=== PATIENT | female | born 1950 | race African-American/Black ===

== ENCOUNTER → 2019-05-27 | Outpatient (CLI) | payer MEDICARE ==
--- NOTE | 2019-05-27 12:54 | WOMENS IMAGING REPORT ---
EXAM DESCRIPTION: U/S BREAST UNILATERAL, COMPL COMPLETE DATE/TIME: 05/27/2019 10:05 am REASON FOR STUDY: RT BREAST TO INCLUDE AXILLA,N63.11 N63.11 UNSPECIFIED LUMP IN THE RIGHT BREAST, U PPER OUTER WILMER FINDINGS: Please see combined report for performance of procedure and radiologic supervision and int erpretation. IMPRESSION: Please see combined report for performance of procedure and radiologic supervision and i nterpretation. Reading location - IP/workstation name: [email or web address]
--- NOTE | 2019-05-29 07:20 | WOMENS IMAGING REPORT ---
EXAM DESCRIPTION: 3D DX MAMMO BILAT COMPLETED DATE/TIME: 05/27/2019 9:39 am REASON FOR STUDY: N63.11 UNSPECIFIED LUMP IN THE RIGHT BREAST, UPPER OUTER QUADRANT N63.11 UNSPECIF IED LUMP IN THE RIGHT BREAST, UPPER OUTER WILMER COMPARISON: None. EXAM PARAMETERS: Standard craniocaudal and mediolateral oblique views of each breast recorded using digital acquisition and breast tomosynthesis. Read with the assistance of CAD: .[facility] - [employer] Strap Cutter Version 9.2 LIMITATIONS: This examination is very limited on the right due to the patient's pain and tenderness. The compression was limited. FINDINGS: RIGHT BREAST MASSES: Diffuse marked skin thickening. A large multilobulated dense mass in the lateral breast. I ncreased parenchymal density is located directly behind the nipple. This finding correlates to the c linically palpable mass. CALCIFICATIONS: No new or suspicious calcifications. ARCHITECTURAL DISTORTION: None. ASYMMETRY: None noted. OTHER: No other significant findings. LEFT BREAST MASSES: No suspicious masses. CALCIFICATIONS: No new or suspicious calcifications. ARCHITECTURAL DISTORTION: None. ASYMMETRY: None noted. OTHER: No other significant finding. BREAST ULTRASOUND: TECHNIQUE: Static and dynamic grayscale images acquired of the right breast in the specific areas of clinical/mammographic concern. Selected color Doppler images recorded. ELASTOGRAPHY PERFORMED: No. LIMITATIONS: None. FINDINGS: MASS: The right breast was scanned from the 12 to 12 o'clock axes. Diffuse marked skin thickening. Breast edema is also noted. A very large multiloculated complex mass composed of cystic, solid and complex cystic components between the 7-8 o'clock axes. . Blood flow is demonstrated. Consideration s for this finding includes neoplasm, with differential including inflammatory breast cancer. ELASTOGRAPHY CHARACTERISTICS: Not applicable. OTHER: No other significant finding. IMPRESSION: 1. A very large complex multiloculated mass in the Right breast between the 7- 8 o'cloc k axes. Marked diffuse skin thickening and edema within the breast. BREAST DENSITY: b. There are scattered areas of fibroglandular density. BIRAD: ASSESSMENT: 4C-High suspicion for malignancy. Biopsy should be performed in the absence of c linical contra-indication. RECOMMENDATION: 1. The patient has a scheduled Surgical appointment. MRI Breast with and without c ontrast also suggested. COMMUNICATION:The results of this examination were discussed with the provider's partner on 05/27/2019 at 10:16 hours. COMMENT: The patient has been notified of the results by letter per SA requirements. Additional no tification policies are in place for contacting patient with suspicious or incomplete findings. Quality ID #225: The [employer] recommends an annual screening mammogram for women aged 40 years or over. This facility utilizes a reminder system to ensure that all patients receive reminder letters, and/or direct phone calls for appointments. This includes reminders for routine scr eening mammograms, diagnostic mammograms, or other Breast Imaging Interventions when appropriate. Th is patient will be placed in the appropriate reminder system. TECHNICAL DOCUMENTATION: FINDING NUMBER: (1) ASSESSMENT: (1) JOB ID: [id number] 2010 [employer]- All Rights Reserved Reading location - IP/workstation name: [email or web address]
== END ==
LOC: WI 09:14
PROVIDERS: ATTEND Physician Assistant
DX: N63.11 Unspecified lump in the right breast, upper outer quadrant (principal)
CPT/HCPCS: 76641; 77066; G0279; 77062

== ENCOUNTER 2019-08-14 07:55 | Day surgery (SDC) | payer MEDICARE, OTHER ==
[2019-08-09 10:27] LABS: HEMATOCRIT 36.4 % (36.0-47.0); HEMOGLOBIN 12.2 g/dL (12.0-15.5); MEAN CORPUSCULAR HEMOGLOBIN 30.9 pg (27.0-33.4); MEAN CORPUSCULAR HGB CONC 33.6 g/dL (32.0-36.0); MEAN CORPUSCULAR VOLUME 92 fl (80-97); PLATELET COUNT 282 10^3/uL (150-450); RED BLOOD COUNT 3.96 10^6/uL (3.72-5.28); RED CELL DISTRIBUTION WIDTH 13.7 % (11.5-14.0); WHITE BLOOD COUNT 6.9 10^3/uL (4.0-10.5)
[2019-08-09 10:48] LABS: ANION GAP 9 (5-19); BLOOD UREA NITROGEN 17 mg/dL (7-20); CALCIUM 9.4 mg/dL (8.4-10.2); CARBON DIOXIDE 28 mmol/L (22-30); CHLORIDE 100 mmol/L (98-107); GLUCOSE 311 mg/dL (75-110)
[~2019-08-14 07:55] MED LIST: ACETAMINOPHEN 325 MG TABLET PO PRN; CLINDAMYCIN 600 MG/D5W RTU 600 MG/50 ML RTUPB IV PRN; DEXAMETHASONE SOD PHOSPHATE INJ 4 MG/1 ML VIAL ONE; LACTATED RINGERS 1000 ML IV PRN; LIDOCAINE 0.5% INJ-PF (5 MG/ML) 50 ML SDV SUBCUT PRN; LIDOCAINE 4% CREAM 5 GM TUBE TP PRN; ONDANSETRON HCL INJ/PF 4 MG/2 ML SDV ONE; RINGERS SOLUTION,LACTATED 1,000 ML IV PRN; SUCCINYLCHOLINE CHLORIDE INJ 200 MG/10 ML VIAL ONE
[2019-08-14] MEDS ORDERED: LIDOCAINE 4% CREAM 5 GM TUBE ONE (08:11)
[2019-08-14] MEDS ORDERED: CLINDAMYCIN 600 MG/D5W RTU 600 MG/50 ML RTUPB IV ONE (09:07)
[2019-08-14] MEDS ORDERED: MIDAZOLAM 2 MG/2 ML INJ ONE (09:47)
[2019-08-14] MEDS ORDERED: HYDROMORPHONE HCL INJ/PF 2 MG/ML AMPULE ONE (09:48)
[2019-08-14] MEDS ORDERED: PROPOFOL INJ 200 MG/20 ML VIAL IV ONE (09:48)
[2019-08-14] MEDS ORDERED: HYDRALAZINE HCL INJ/PF 20 MG/1 ML SDV ONE (12:15)
[2019-08-14] MEDS ORDERED: MICROFIBRILLAR COLLAGEN 1 GM PACK ONE (12:34)
[2019-08-14] MEDS ORDERED: METHYLENE BLUE 50 MG/10 ML AMPULE ONE (12:34)
[2019-08-14] MEDS ORDERED: LIDOCAINE 1%/EPINEPHRINE INJ 20 ML VIAL ONE (12:34)
[2019-08-14] MEDS ORDERED: INSULIN REG, HUMAN 100 UNIT/ML 3 ML VIAL (PYX) ONE (12:40)
--- NOTE | 2019-08-14 13:00 | RADIOLOGY REPORT (SQ) ---
EXAM DESCRIPTION: NM LYMPHATICS/LYMPH GLANDS IMAGES COMPLETED DATE/TIME: 08/14/2019 11:57 am REASON FOR STUDY: RT BREAST TO INCLUDE AXILLA N63.11, UNSPEC LUMP IN RT BREAST N63.10 UNSPECIFIED L UMP IN THE RIGHT BREAST, UNSPECIFIED WILMER Z79.899 OTHER [facility] (CURRENT) DRUG THERAPY COMPARISON: 05/27/2019 RADIONUCLIDE AND DOSE: 0.625 microcuries TC-99m tilmanocept - Lymphoseek. The route of agent administration: Subcutaneous in the skin. TECHNIQUE: The skin of the right breast was prepped in sterile fashion. The radiopharmaceutical was administered in equally divided doses in the periareolar breast. LIMITATIONS: None. FINDINGS: Images demonstrate activity at the injection site and a right axillary node. IMPRESSION: ADMINISTRATION OF RADIOPHARMACEUTICAL FOR SENTINEL LYMPH NODE EVALUATION. TECHNICAL DOCUMENTATION: JOB ID: [id number] 2010 [employer]- All Rights Reserved Reading location - IP/workstation name: [email or web address]
[2019-08-14] MEDS ORDERED: OXYCODONE-ACETAMINOPHEN 5-325 MG TABLET PO PRN ×2 (13:22)
[2019-08-14] MEDS ORDERED: MEPERIDINE HCL/PF INJ 25 MG/1 ML DISP.SYRIN IV PRN (13:22)
[2019-08-14] MEDS ORDERED: MORPHINE SULFATE 10 MG/ML INJ IV PRN (13:22)
[2019-08-14] MEDS ORDERED: FENTANYL CITRATE INJ/PF 100 MCG/2 ML AMPUL IV PRN ×3 (13:22)
[2019-08-14] MEDS ORDERED: DIPHENHYDRAMINE HCL 50 MG/ML VIAL IV PRN (13:22)
[2019-08-14] MEDS ORDERED: ONDANSETRON HCL INJ/PF 4 MG/2 ML SDV IV PRN (13:22)
[2019-08-14] MEDS ORDERED: HYDRALAZINE HCL INJ/PF 20 MG/1 ML SDV IV ONE (14:00)
--- NOTE | 2019-08-14 14:29 | Discharge Summary ---
Discharge Summary (SDC) - Discharge Final Diagnosis: Large hemorrhagic, fungating right breast tumor Date of Surgery: 08/14/19 Discharge Date: 08/14/19 Condition: Good Treatment or Instructions: Teach patient drain care; follow-up with [facility] in 1 week; prescription on chart; may shower in 48 hours Referrals: BALBINA GUERRERO PA [Primary Care Provider] - Discharge Diet: As Tolerated Discharge Activity: Activity As Tolerated Home Care Assistance: None Needed Report the Following to Your Physician Immediately: Shortness of Breath, Increase in Pain, Fever over 101 Degrees
--- NOTE | 2019-08-14 14:40 | Operative Report ---
Operative Report DATE OF SURGERY: 08/14/19 PREOPERATIVE DIAGNOSIS: Large right hemorrhagic breast tumor consistent with pa pillomatous changes POSTOPERATIVE DIAGNOSIS: Same OPERATION: 1. Right mastectomy. 2. Right axillary sentinel lymph node biopsy. 3. Drainage of right chest wall SURGEON: MYRON BECKER MUSIC VIDEO DIRECTOR: LUC ARIZMENDI ANESTHESIA: GA TISSUE REMOVED OR ALTERED: 1 right breast. Right sentinel lymph node. Posterior mastectomy margin COMPLICATIONS: None ESTIMATED BLOOD LOSS: 75 cc INTRAOPERATIVE FINDINGS: See below PROCEDURE: Patient seen the preop holding area the right breast was marked. The patient appears undergone lymphoscintigraphy of the right breast with an area of increased uptake in the low right axilla. Right breast was marked, the patient was taken to the main operating room general anesthesia was induced. The right breast, axilla and chest wall were prepped and draped in a sterile fashion. We proceeded with methylene blue injection, 10 o'clock position, areolar border right breast. Right breast was marked for a planned right mastectomy. Surgical plan and surgical timeout were conducted. The skin was incised with a #10 blade, and superior and inferior skin flaps were raised with electrocautery. Of note there was a significant amount of edema, and dilated superficial veins. All veins were clipped as encountered with the medium Hemoclip applicator. The breast was then dissected off of the chest wall including the pectoralis major fascia. The the extent of the mastectomy included the infra clavicular level superiorly, the para sternal tissue medially, and the parenchyma putting the serratus anterior muscle inferiorly. The breast was taken entirely off of the chest wall, then the dissection was continued out laterally elevating the breast off of the lateral border of the pectoralis muscle. We now turned our attention to the right axilla. Endeavor lymph node biopsy was performed. There were no blue nodes identified, however there was one hot node was resected with a comparable count ex vivo. It was sent to pathology for permanent analysis. The Srinivas was removed in toto with the remainder of the breast. The breast was freed up off of the chest wall, and lateral a xillary fold and marked with a long suture in the lateral position and short suture in the superior position. Of note while the breast was coming off of the pectoralis muscle along its lateral-inferior border, there was some scar tissue. I therefore want to ensure that the margin here was negative so a small portion of fibromuscular tissue representing the posterior wall of the mastectomy removed with electrocautery. It was approximately 2 x 2 cm. It was marked with a long suture lateral position short suture in the superior position. It was personally taken to the pathology lab by Dr. Dick and reviewed with Dr. Katelin Rosales. The specimen was prepared, frozen sections acquired, and examined and found to contain no evidence of malignancy. At this point we felt the operation was complete. A large Armand drain was placed in the inferior skin flap, secured to the skin with 2-0 Prolene suture. The wound was closed in layers with 2-0 Vicryl 3-0 Vicryl, and skin glue. Patient tolerated procedure well, taken to recovery room in stable condition. The physician facilities maintenance assistant, Ms. Atkins, provided assistance during this case by: retracting tissue, instillation of local anesthesia and closure of skin incisions.
[2019-08-14 17:23] VITALS: BP 153/86
== END 2019-08-14 17:00 | disposition home or self-care (01) ==
LOC: OROUT 07:55
PROVIDERS: ATTEND Surgery
DX: C50.811 Malignant neoplasm of overlapping sites of right female breast (principal); C77.3 Secondary and unspecified malignant neoplasm of axilla and upper limb lymph nodes; I10 Essential (primary) hypertension; F17.210 Nicotine dependence, cigarettes, uncomplicated; Z86.73 Personal history of transient ischemic attack (TIA), and cerebral infarction without residual deficits; Z03.818 Encounter for observation for suspected exposure to other biological agents ruled out; Z79.899 Other long term (current) drug therapy
CPT/HCPCS: 36415 ×2; 82962; 84132; 85027; 80048; 88342 ×2; 88341 ×2; 88305 ×2; 88309 ×2; 88331 ×2; 78195; 01610; 19307; U0003; A9520; J2250; J1100; J0360; J1170; J3490; A9270; J0330; J2405; J2704; Q9968; C9803; 1610; 87635; 88307; J1815

== ENCOUNTER → 2019-09-03 | Outpatient (CLI) | payer MEDICARE, OTHER ==
--- NOTE | 2019-09-03 11:35 | RADIOLOGY REPORT (SQ) ---
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 TECHNIQUE: CT scan of the abdomen and pelvis performed using helical scanning technique with dynamic intravenous contrast injection. No oral contrast. Images reviewed with lung, soft tissue, and bone windows. Reconstructed coronal and sagittal MPR images reviewed. Delayed images for evaluation of the urinary system also acquired. All images stored on PACS. All CT scanners at this facility use dose modulation, iterative reconstruction, and/or weight based d osing when appropriate to reduce radiation dose to as low as reasonably achievable (ALARA). [facility]: Dose Right [facility]: CareDose [facility]: Dose Right [facility]: Teradose 4D [facility]: [employer] CONTRAST TYPE AND DOSE: 75 mL Omnipaque 350- low osmolar. RENAL FUNCTION: Creatinine 0.6 milligrams/deciliter. LIMITATIONS: None. FINDINGS: LOWER CHEST: Refer to the separate report of the CT of the chest. LIVER: The morphology of the liver is noncirrhotic. There are numerous low-attenuation hepatic lesio ns scattered that range in size from 5 mm to 17 x 17 mm ; the internal attenuation of the 17 x 17 mm lesion in segment 4A of the liver measures less than 10 Hounsfield units. The portal veins are paten t. SPLEEN: No splenomegaly or splenic mass. PANCREAS: No acute gross abnormality of the pancreas. GALLBLADDER: No abnormality that is apparent on CT. ADRENAL GLANDS: 16 x 9 mm nodule in the right adrenal gland. RIGHT KIDNEY AND URETER: There is no solid mass, hydronephrosis, nephrolithiasis, hydroureter or uret erolithiasis. LEFT KIDNEY AND URETER: There is no solid mass, hydronephrosis, nephrolithiasis, hydroureter or urete rolithiasis. AORTA AND VESSELS: Calcified and noncalcified atheromatous plaques in the abdominal aorta and iliac v essels. There is no abdominal aortic aneurysm. RETROPERITONEUM: No retroperitoneal adenopathy, hemorrhage or mass. BOWEL AND PERITONEAL CAVITY: No bowel obstruction, bowel wall thickening or pericolonic/ perienteric inflammation. No mesenteric adenopathy, free intraperitoneal fluid or mesenteric/ omental inflammati on. APPENDIX: Unable to identify the appendix. There is no pericecal inflammation. PELVIS: The uterus is surgically absent. There is no adnexal mass. There is no abnormality of the u rinary bladder. ABDOMINAL WALL: No abdominal wall mass or hernia. BONES: Sclerotic lesion with a narrow zone of transition in the left ilium (image 57 of series 3). OTHER: No other finding. IMPRESSION: 1. Low attenuation hepatic lesions that range in size from 5 mm to 17 x 17 mm. Based o n the internal attenuation of the 17 x 17 mm lesion (less than 10 Hounsfield units) the favored diffe rential consideration is hepatic cysts. Continued attention on follow-up CTs is recommended. 2. Indeterminate 16 x 9 mm right adrenal nodule. 3. Sclerotic lesion with a narrow zone of transition in the left ilium (image 57 of series 3) - chito elate with findings on bone scan. TECHNICAL DOCUMENTATION: JOB ID: [id number] Quality ID # 436: Final reports with documentation of one or more dose reduction techniques (e.g., Au tomated exposure control, adjustment of the mA and/or kV according to patient size, use of iterative reconstruction technique) 2010 [employer]- All Rights Reserved Reading location - IP/workstation name: [email or web address]
--- NOTE | 2019-09-03 11:48 | RADIOLOGY REPORT (SQ) ---
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 TECHNIQUE: CT scan of the chest performed using helical scanning technique with dynamic intravenous contrast injection. Images reviewed with lung, soft tissue and bone windows. Reconstructed coronal and sagittal MPR and MIP images reviewed. All images stored on PACS. All CT scanners at this facility use dose modulation, iterative reconstruction, and/or weight based d osing when appropriate to reduce radiation dose to as low as reasonably achievable (ALARA). [facility]: Dose Right [facility]: CareDose [facility]: Dose Right [facility]: Teradose 4D [facility]: [employer] CONTRAST TYPE AND DOSE: 75 mL Omnipaque 350- low osmolar. RENAL FUNCTION: Creatinine 0.6 milligrams/deciliter. RADIATION DOSE: CT Rad equipment meets quality standard of care and radiation dose reduction techniq ues were employed. CTDIvol: 4.5 - 5.1 mGy. DLP: 639 mGy-cm. LIMITATIONS: None. FINDINGS: LUNGS AND PLEURA: The trachea and main bronchi are patent. There is no consolidation, ple ural effusion or pneumothorax. There is no greater than 6 mm pulmonary nodule. HILAR AND MEDIASTINAL STRUCTURES: No adenopathy or mass. HEART AND VASCULAR STRUCTURES: Calcified and noncalcified atheromatous plaques in the thoracic aorta. There is no thoracic aortic aneurysm or dissection. There is a retropharyngeal course of the left common carotid artery. There is mild atherosclerotic calcification of the coronary arteries. There is no cardiomegaly or pericardial effusion. HARDWARE: None in the chest. UPPER ABDOMEN: Refer to the separate report of the CT of the abdomen. THYROID AND OTHER SOFT TISSUES: Status post right mastectomy and axillary lymph node dissection with surgical clips present. There is dermal thickening throughout the anterolateral aspect of the right hemithorax. There is a 16 x 21 mm nodular density in the right axilla (image 15 of series 2) that zhang s an internal attenuation of 9.2 Hounsfield units. There also several adjacent lymph nodes that julieth ure up to 6 mm in short axis diameter. The low-attenuation subcutaneous lesion posterior to the T2 s pinous process and left trapezius (image 2 of series 2) could represent epidermal inclusion cysts. BONES: No fracture or osseous lesion. OTHER: No other finding. IMPRESSION: Status post right mastectomy and axillary lymph node dissection. There are expected pos toperative findings in the anterolateral aspect of the right hemithorax including dermal thickening a nd surgical clips. The nodular density in the right axilla (image 15 of series 2) is nonspecific and could represent fat necrosis - consider correlation with an ultrasound. TECHNICAL DOCUMENTATION: JOB ID: [id number] Quality ID # 436: Final reports with documentation of one or more dose reduction techniques (e.g., Au tomated exposure control, adjustment of the mA and/or kV according to patient size, use of iterative reconstruction technique) 2010 [employer]- All Rights Reserved Reading location - IP/workstation name: [email or web address]
--- NOTE | 2019-09-03 14:34 | RADIOLOGY REPORT (SQ) ---
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 The route of agent administration: Intravenous. ADDITIONAL DRUGS AND DOSES: None. TECHNIQUE: Routine delayed images at 3 hours post radionuclide injection acquired of the bony skelet on including anterior and posterior whole-body projections and additional focused images as needed. LIMITATIONS: None. FINDINGS: BONES: There is increased uptake in the mandible and in the maxilla. There is a small are a of focal uptake near the costovertebral junction of the left 6th rib. There is increased uptake in the right knee. KIDNEYS: Symmetric excretion without obstruction. OTHER: No other significant finding. IMPRESSION: The uptake in the mandible and maxilla likely secondary to dental disease. The uptake a t the costovertebral junction on the left may be secondary to degenerative change. Activity in the r ight knee likely secondary to degenerative change. However, cannot entirely exclude metastatic disea se COMMENT: Quality measure 147: Current bone scan is compared with any available plain radiographs, p rior bone scans, and CT/MRI. TECHNICAL DOCUMENTATION: JOB ID: [id number] 2010 [employer]- All Rights Reserved Reading location - IP/workstation name: [email or web address]
== END ==
LOC: RAD 09:36
PROVIDERS: ATTEND Internal Medicine
DX: C50.411 Malignant neoplasm of upper-outer quadrant of right female breast (principal)
CPT/HCPCS: 82565; 78306; 71260; 74177; A9503; Q9969

== ENCOUNTER → 2019-10-01 | Outpatient (CLI) | payer MEDICARE, OTHER ==
--- NOTE | 2019-10-02 09:03 | RADIOLOGY REPORT (SQ) ---
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 TECHNIQUE: Blood glucose level was verified. Above dose of FDG was injected intravenously. 2-D seg mented attenuation correction images were obtained from the base of the skull to the midthighs. Nonc ontrast CT images were obtained for attenuation correction and fusion with emission images. CT image s were performed without oral or intravenous contrast and are not sensitive for parenchymal lesions. A series of overlapping emission PET images were obtained. Images reviewed and manipulated at [facility] work station by the radiologist. Images stored on PACS. LIMITATIONS: None. FINDINGS: HEAD AND NECK: No areas of abnormal metabolic activity in the soft tissues of the head and neck. CHEST: No abnormal parenchymal or mediastinal abnormalities. Mild uptake in small sub pectoralis lym ph nodes. SUV is less than 2. Mild increased uptake in the skin of the right breast at the surgical site. There is focal uptake demonstrated on image 79. SUV however is less in 2 this may related to prior surgery. ABDOMEN AND PELVIS: No areas of abnormal metabolic activity in the abdomen or pelvis. Expected physi ologic activity is present in the genitourinary system and bowel. PROXIMAL LOWER EXTREMITIES: No areas of abnormal metabolic activity in the soft tissues of the lower extremities. BONES: No abnormal metabolic activity in the visualized skeleton. ADDITIONAL CT FINDINGS: No additional significant findings on the noncontrast CT images. OTHER: No other significant findings. IMPRESSION: Mild uptake is subcutaneous tissues of the right breast most likely related to recent arredondo rgery. There are some small lymph nodes in the right axilla but SUV is less than 2. No evidence of metastatic disease by PET evaluation. TECHNICAL DOCUMENTATION: JOB ID: [id number] 2010 [employer]- All Rights Reserved Reading location - IP/workstation name: [email or web address]
== END ==
LOC: RAD 09-24 08:37
PROVIDERS: ATTEND Internal Medicine
DX: C50.411 Malignant neoplasm of upper-outer quadrant of right female breast (principal)
CPT/HCPCS: 78815; A9552

== ENCOUNTER 2019-10-24 13:55 | Outpatient (CLI) | payer MEDICARE, OTHER ==
[~2019-10-24 13:55] MED LIST changes: -ACETAMINOPHEN 325 MG TABLET PO PRN; -CLINDAMYCIN 600 MG/D5W RTU 600 MG/50 ML RTUPB IV PRN; -DEXAMETHASONE SOD PHOSPHATE INJ 4 MG/1 ML VIAL ONE; -LACTATED RINGERS 1000 ML IV PRN; -LIDOCAINE 0.5% INJ-PF (5 MG/ML) 50 ML SDV SUBCUT PRN; -LIDOCAINE 4% CREAM 5 GM TUBE TP PRN; -ONDANSETRON HCL INJ/PF 4 MG/2 ML SDV ONE; +PEGFILGRASTIM-CBQV 6 MG/0.6 ML SYRINGE SUBCUT PRN; -RINGERS SOLUTION,LACTATED 1,000 ML IV PRN; -SUCCINYLCHOLINE CHLORIDE INJ 200 MG/10 ML VIAL ONE
[2019-10-24 14:03] VITALS: BP 178/63
== END 2019-10-24 14:44 | disposition home or self-care (01) ==
LOC: II 13:55 → 5TH 13:57 → II 14:44
PROVIDERS: ATTEND Internal Medicine
DX: Z76.89 Persons encountering health services in other specified circumstances (principal); C50.411 Malignant neoplasm of upper-outer quadrant of right female breast
CPT/HCPCS: 96372; Q5111

== ENCOUNTER 2019-10-29 23:12 | Emergency (ER) | payer MEDICARE ==
--- NOTE | 2019-10-29 23:28 | ER Document Report ---
ED General - General Stated Complaint: BACK PAIN Time Seen by Provider: 10/29/19 23:21 Primary Care Provider: SONA MELLO MD [ACTIVE STAFF] - Follow up as needed Mode of Arrival: Medic Information source: Patient, Emergency Med Personnel Notes: 68-year-old black female arrives by EMS after having right flank pain mid back to low back pain and spasm since [place] hours. Progressively became worse until she called EMS early this evening. EMS evaluated the patient and gave her 100 mg of fentanyl which caused her spasms to cease all pain and spasms. Patient is awake and alert upon arrival and advises she is completely cured. She denies any dysuria denies any overuse. She was laying on her couch as she was having her right flank and back spasms. Patient just had her right breast removed because of cancer here at this hospital and August of this year. EKG was normal vital signs were within normal limits. Patient had 149/79 blood pressure 93 heart rate respiratory rate 15 at 96% room air saturation and was afebrile per EMS. Patient says she ate supper at 1500 which was meatloaf and potatoes and string beans. She denies any nausea at this time. TRAVEL OUTSIDE OF THE [place] IN LAST 30 DAYS: No - HPI Onset: This morning Onset/Duration: Sudden, Persistent, Better Quality of pain: Achy Severity: Severe Pain Level: 5 Associated symptoms: None Exacerbated by: Movement Relieved by: Remaining still Similar symptoms previously: No - Patient reports she had spasms in her back over 40 years ago;but none recen Recently seen / treated by doctor: No - Related Data Allergies/Adverse Reactions: Penicillins Allergy (Severe, Verified 10/29/19 23:31) Hives Past Medical History - General Information source: Patient - Social History Smoking Status: Former Smoker Cigarette use (# per day): No Chew tobacco use (# tins/day): No Smoking Education Provided: No Frequency of alcohol use: None Drug Abuse: None Lives with: Family Family History: Reviewed & Not Pertinent Patient has suicidal ideation: No Patient has homicidal ideation: No - Past Medical History Cardiac Medical History: Reports: Hx Hypertension Denies: Hx Coronary Artery Disease, Hx Heart Attack Pulmonary Medical History: Denies: Hx Asthma, Hx Bronchitis, Hx COPD, Hx Pneumonia Neurological Medical History: Reports: Hx Cerebrovascular Accident - no residual. Denies: Hx Seizures Musculoskeletal Medical History: Denies Hx Arthritis - Immunizations Hx Diphtheria, Pertussis, Tetanus Vaccination: No Review of Systems - Review of Systems Constitutional: No symptoms reported EENT: No symptoms reported Cardiovascular: No symptoms reported Respiratory: No symptoms reported Gastrointestinal: No symptoms reported Genitourinary: No symptoms reported Female Genitourinary: No symptoms reported Musculoskeletal: See HPI, Back pain Skin: No symptoms reported Hematologic/Lymphatic: No symptoms reported Neurological/Psychological: No symptoms reported Physical Exam - Vital signs Vitals: Temp 99 F 10/29/19 23:12 Interpretation: Normal - General General appearance: Appears well, Alert - HEENT Head: Normocephalic, Atraumatic Eyes: Normal Pupils: PERRL Mouth/Lips: Normal Mucous membranes: Normal Pharynx: Normal Neck: Normal - Respiratory Respiratory status: No respiratory distress Chest status: Nontender Breath sounds: Normal Chest palpation: Normal, Other - obvious amastia right chest - Cardiovascular Rhythm: Regular Heart sounds: Normal auscultation Murmur: No - Abdominal Inspection: Normal Distension: No distension Bowel sounds: Normal Tenderness: Nontender Organomegaly: No organomegaly - Rectal Hemorrhoids: Other - deferred - Genitourinary Bimanuel exam: Other - deferred - Back Back: Tender - right cva to ls area prior to arrival but none upon arrival - Extremities General upper extremity: Normal inspection General lower extremity: Normal inspection - Neurological Neuro grossly intact: Yes Cognition: Normal Orientation: AAOx4 Chauvin Coma Scale Eye Opening: Spontaneous Karen Coma Scale Verbal: Oriented Chauvin Coma Scale Motor: Obeys Commands Chauvin Coma Scale Total: 15 Speech: Normal Motor strength normal: LUE, RUE, LLE, RLE Sensory: Normal - Psychological Associated symptoms: Normal affect - Skin Skin Temperature: Warm Skin Moisture: Dry Course - Vital Signs Vital signs: Temp Pulse Resp BP Pulse Ox 99.0 F 87 18 144/67 H 93 10/29/19 23:24 10/29/19 23:24 10/29/19 23:24 10/29/19 23:24 10/29/19 23:24 - Laboratory Laboratory results interpreted by me: 10/29/19 23:42 Urine Glucose (UA) >=500 H Ur Leukocyte Esterase TRACE H - Diagnostic Test Radiology reviewed: Reports reviewed Discharge - Discharge Clinical Impression: Spasm of back muscles, UTI (urinary tract infection) Condition: Good Disposition: HOME, SELF-CARE Additional Instructions: Follow-up with personal doctor; this week return to ER as needed; take medicines as directed; encourage fluids ;avoid lifting bending or twisting until seen by personal doctor. Prescriptions: Ciprofloxacin HCl [Cipro 500 mg Tablet] 500 mg PO BID #20 tablet Chlorzoxazone [Parafon Forte Dsc 500 Mg Tablet] 500 mg PO BID PRN #20 tablet PRN Reason: Referrals: SONA MELLO MD [ACTIVE STAFF] - Follow up as needed
[2019-10-29 23:58] LABS: APPEARANCE,URINE CLEAR; BILIRUBIN,URINE NEGATIVE (NEGATIVE); COLOR,URINE YELLOW; GLUCOSE, URINE >=500 mg/dL (NEGATIVE); KETONES,URINE NEGATIVE (NEGATIVE); LEUKOCYTE ESTERASE,URINE TRACE (NEGATIVE); NITRITE,URINE NEGATIVE (NEGATIVE); PROTEIN,URINE NEGATIVE (NEGATIVE); URINE SPECIFIC GRAVITY 1.023; UROBILINOGEN,URINE NEGATIVE mg/dL (<2.0)
--- NOTE | 2019-10-30 00:10 | RADIOLOGY REPORT (SQ) ---
CLINICAL HISTORY: right flank spasms COMPARISON: None. TECHNIQUE: XR CHEST 1 VIEW 10/29/2019 11:22 PM CDT FINDINGS: Cardiac silhouette is normal in size. Lungs are clear without consolidation, atelectasis, mass or edema. There is no pleural effusion. There is no pneumothorax. There are no acute osseous findings. IMPRESSION: Clear lungs.
--- NOTE | 2019-10-30 00:10 | RADIOLOGY REPORT (SQ) ---
CLINICAL HISTORY: r flank spasms COMPARISON: None. TECHNIQUE: XR ABDOMEN 1 VIEW (KUB) 10/29/2019 11:22 PM CDT FINDINGS: Bowel gas pattern is nonspecific. There are no abnormal radiopaque foreign bodies or abnormal calcifications. Osseous structures are grossly unremarkable. IMPRESSION: No bowel obstruction.
[2019-10-30] MEDS ORDERED: CIPROFLOXACIN HCL 500 MG TABLET PO ONE (02:22)
[2019-10-30 02:54] VITALS: BP 146/74
== END 2019-10-30 02:54 | disposition home or self-care (01) ==
LOC: ER 23:12
DX: M62.830 Muscle spasm of back (principal); N39.0 Urinary tract infection, site not specified; I10 Essential (primary) hypertension; Z90.11 Acquired absence of right breast and nipple; Z85.3 Personal history of malignant neoplasm of breast; Z87.891 Personal history of nicotine dependence; Z88.0 Allergy status to penicillin
CPT/HCPCS: 99284; 81001; 71045; 74018; A9270

== ENCOUNTER 2019-11-13 08:46 | Outpatient (CLI) | payer MEDICARE ==
[~2019-11-13 08:46] MED LIST changes: +CYCLOPHOSPHAMIDE IV PRN; +DEXAMETHASONE SOD PHOSPHATE 20 MG in NORMAL SALINE 50 ML IV PRN; +DIPHENHYDRAMINE 50 MG in NS 50 ML IV PRN; +DOCETAXEL IV PRN; +FAMOTIDINE 20 MG in NS 50 ML IV PRN; +FOSAPREPITANT 150 MG in NS 150 ML IV PRN; +NORMAL SALINE 500 ML @ KVO IV PRN; +NORMAL SALINE IV PRN; +PALONOSETRON 0.25 MG/5 ML VIAL IV PRN; -PEGFILGRASTIM-CBQV 6 MG/0.6 ML SYRINGE SUBCUT PRN
[2019-11-13 10:06] VITALS: BP 150/59
== END 2019-11-13 13:30 | disposition home or self-care (01) ==
LOC: II 08:46 → 5TH 08:48 → II 13:30
PROVIDERS: ATTEND Internal Medicine
DX: Z51.11 Encounter for antineoplastic chemotherapy (principal); C50.411 Malignant neoplasm of upper-outer quadrant of right female breast
CPT/HCPCS: 96411; 96413; 96367; 96375; J9070; J1200; J7050 ×3; S0028; J1100; J1453; J2469; J9171

== ENCOUNTER 2019-11-14 12:40 | Outpatient (CLI) | payer MEDICARE ==
[~2019-11-14 12:40] MED LIST changes: -CYCLOPHOSPHAMIDE IV PRN; -DEXAMETHASONE SOD PHOSPHATE 20 MG in NORMAL SALINE 50 ML IV PRN; -DIPHENHYDRAMINE 50 MG in NS 50 ML IV PRN; -DOCETAXEL IV PRN; -FAMOTIDINE 20 MG in NS 50 ML IV PRN; -FOSAPREPITANT 150 MG in NS 150 ML IV PRN; -NORMAL SALINE 500 ML @ KVO IV PRN; -NORMAL SALINE IV PRN; -PALONOSETRON 0.25 MG/5 ML VIAL IV PRN; +PEGFILGRASTIM-CBQV 6 MG/0.6 ML SYRINGE SUBCUT PRN
[2019-11-14 12:56] VITALS: BP 157/68
== END 2019-11-14 13:01 | disposition home or self-care (01) ==
LOC: II 12:40 → 5TH 12:42 → II 13:01
PROVIDERS: ATTEND Internal Medicine
DX: Z76.89 Persons encountering health services in other specified circumstances (principal); C50.411 Malignant neoplasm of upper-outer quadrant of right female breast
CPT/HCPCS: 96372; Q5111

== ENCOUNTER → 2019-12-05 | Outpatient (CLI) | payer MEDICARE | LOC: II 13:00 → 5TH 13:01 → II 13:01 | PROVIDERS: ATTEND Internal Medicine | DX: Z76.89 Persons encountering health services in other specified circumstances (principal); C50.411 Malignant neoplasm of upper-outer quadrant of right female breast | CPT/HCPCS: Q5111 ==

== ENCOUNTER 2019-12-18 13:26 | Day surgery (SDC) | payer MEDICARE, OTHER ==
[2019-12-13 10:21] LABS: HEMATOCRIT 28.1 % (36.0-47.0); HEMOGLOBIN 9.4 g/dL (12.0-15.5); MEAN CORPUSCULAR HEMOGLOBIN 30.6 pg (27.0-33.4); MEAN CORPUSCULAR HGB CONC 33.4 g/dL (32.0-36.0); MEAN CORPUSCULAR VOLUME 92 fl (80-97); PLATELET COUNT 380 10^3/uL (150-450); RED BLOOD COUNT 3.06 10^6/uL (3.72-5.28); RED CELL DISTRIBUTION WIDTH 17.1 % (11.5-14.0); WHITE BLOOD COUNT 6.7 10^3/uL (4.0-10.5)
[~2019-12-18 13:26] MED LIST changes: +ACETAMINOPHEN 325 MG TABLET PO PRN; +CLINDAMYCIN 600 MG/D5W RTU 600 MG/50 ML RTUPB IV PRN; +LACTATED RINGERS 1000 ML IV PRN; +LIDOCAINE 0.5% INJ-PF (5 MG/ML) 50 ML SDV SUBCUT PRN; +LIDOCAINE 1%/EPINEPHRINE INJ 20 ML VIAL ONE; -PEGFILGRASTIM-CBQV 6 MG/0.6 ML SYRINGE SUBCUT PRN
[2019-12-18] MEDS ORDERED: CLINDAMYCIN 600 MG/D5W RTU 600 MG/50 ML RTUPB IV ONE (13:39)
[2019-12-18] MEDS ORDERED: MIDAZOLAM 2 MG/2 ML INJ ONE (14:49)
[2019-12-18] MEDS ORDERED: FENTANYL CITRATE INJ/PF 100 MCG/2 ML AMPUL ONE (14:49)
[2019-12-18] MEDS ORDERED: ONDANSETRON HCL INJ/PF 4 MG/2 ML SDV ONE (14:49)
[2019-12-18] MEDS ORDERED: PROPOFOL INJ 200 MG/20 ML VIAL IV ONE (14:49)
[2019-12-18] MEDS ORDERED: KETAMINE HCL INJ 500 MG/10 ML VIAL ONE (15:20)
[2019-12-18] MEDS ORDERED: PROMETHAZINE HCL INJ 25 MG/1 ML VIAL IV PRN (15:27)
[2019-12-18] MEDS ORDERED: FENTANYL CITRATE INJ/PF 100 MCG/2 ML AMPUL IV PRN ×3 (15:27)
[2019-12-18] MEDS ORDERED: MEPERIDINE HCL/PF INJ 25 MG/1 ML DISP.SYRIN IV PRN (15:27)
[2019-12-18] MEDS ORDERED: MORPHINE SULFATE 10 MG/ML INJ IV PRN (15:27)
[2019-12-18] MEDS ORDERED: DIPHENHYDRAMINE HCL 50 MG/ML VIAL IV PRN (15:27)
[2019-12-18] MEDS ORDERED: VANCOMYCIN HCL 1,000 MG in DEXTROSE 5%-WATER 250 ML IV ONE (15:30)
--- NOTE | 2019-12-18 16:31 | Discharge Summary ---
Discharge Summary (SDC) - Discharge Final Diagnosis: Invasive papillary carcinoma right breast Date of Surgery: 12/18/19 Discharge Date: 12/18/19 Condition: Good Treatment or Instructions: May use port; allow Steri-Strips to fall off; may shower in 72 hours; follow-up with [place] [facility] in 1 to 2 weeks Referrals: BENNY PICKETT MD [Primary Care Provider] - Discharge Diet: As Tolerated Discharge Activity: Activity As Tolerated Home Care Assistance: None Needed Report the Following to Your Physician Immediately: Shortness of Breath, Increase in Pain, Fever over 101 Degrees, Unusual Bleeding
--- NOTE | 2019-12-18 16:42 | Operative Report ---
Operative Report DATE OF SURGERY: 12/18/19 PREOPERATIVE DIAGNOSIS: 1. 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 2. Exhausted peripheral venous access POSTOPERATIVE DIAGNOSIS: Same OPERATION: 1. Focused ultrasound left neck. 2. Ultrasound directed insertion of Port catheter left subclavian position. 3. Interpretation of intraoperative fluoroscopy SURGEON: MYRON BANGURA ANESTHESIA: LMAC TISSUE REMOVED OR ALTERED: None COMPLICATIONS: None ESTIMATED BLOOD LOSS: 25 cc INTRAOPERATIVE FINDINGS: See below PROCEDURE: Patient was taken the preop holding area to the main operating room where LMAC anesthesia was induced. Arms were abducted, left neck and chest wall prepped and draped sterile fashion. Surgical plan and surgical timeout conducted. The left neck was scanned with a variable frequency linear transducer, and the left internal jugular vein was felt to be suitable for cannulation. The skin overlying the left IJ was anesthetized with 1% plain lidocaine. A cande was made the skin with 11 blade, and using the real-time ultrasound as a guide, the left internal jugular vein was cannulated with a micro needle and microwire. A suitable site for placement of the port was chosen the left subclavian position. Skin was anesthetized 1% plain lidocaine. A small transverse incision was made in the subclavian position, port pocket developed large enough to accommodate a single-chamber port in the subclavian position. The catheter that was then trimmed to the appropriate length and tunnel between the 2 incisions and attached to the port with the plastic ring in the port tucked into the left subclavian pocket. The micro wire was switched over to a conventional 0.030 inch guidewire under fluoroscopic guidance. We then threaded a 9 Dutch dilator and introducer sheath over the conventional guidewire, guidewire and dilator removed, and catheter threaded into the left internal jugular vein with the tip ending in the innominate vein. Images were taken for the record. We then aspirated the single-chamber port with a Vazquez needle and heparinized saline and there was good aspiration and flow without resistance. This point we felt the operation was complete. There was no evidence of hypotension or hypoxia. Wounds closed with 3-0 Vicryl benzoin and Steri-Strips. Patient tolerated the procedure well, taken to recovery room in stable condition.
[2019-12-18 18:18] VITALS: BP 160/78
--- NOTE | 2019-12-19 10:36 | RADIOLOGY REPORT (SQ) ---
EXAM DESCRIPTION: CHEST SINGLE VIEW; FLUORO/CV PLACEMENT IMAGES COMPLETED DATE/TIME: 12/18/2019 4:40 pm; 12/18/2019 4:39 pm REASON FOR STUDY: PORT PLACEMENT IN OR C50.911 MALIGNANT NEOPLASM OF UNSP SITE OF RIGHT FEMALE LALY COMPARISON: None. FLUOROSCOPY TIME: 0.6 minutes. 1 images saved to PACS. TECHNIQUE: Intra-operative images acquired during surgical procedure to evaluate progress. NUMBER OF IMAGES: 1 image. LIMITATIONS: None. FINDINGS: Image of the upper chest acquired during port placement. IMPRESSION: IMAGE(S) OBTAINED DURING PROCEDURE. COMMENT: Quality ID [id number]: Final reports for procedures using fluoroscopy that document radiation exp osure indices, or exposure time and number of fluorographic images (if radiation exposure indices are not available) Please consult full operative report of the attending physician for description of the procedure. TECHNICAL DOCUMENTATION: JOB ID: [id number] 2010 [employer]- All Rights Reserved Reading location - IP/workstation name: [email or web address]
--- NOTE | 2019-12-19 10:36 | RADIOLOGY REPORT (SQ) ---
EXAM DESCRIPTION: CHEST SINGLE VIEW; FLUORO/CV PLACEMENT IMAGES COMPLETED DATE/TIME: 12/18/2019 4:40 pm; 12/18/2019 4:39 pm REASON FOR STUDY: PORT PLACEMENT IN OR C50.911 MALIGNANT NEOPLASM OF UNSP SITE OF RIGHT FEMALE LALY COMPARISON: None. FLUOROSCOPY TIME: 0.6 minutes. 1 images saved to PACS. TECHNIQUE: Intra-operative images acquired during surgical procedure to evaluate progress. NUMBER OF IMAGES: 1 image. LIMITATIONS: None. FINDINGS: Image of the upper chest acquired during port placement. IMPRESSION: IMAGE(S) OBTAINED DURING PROCEDURE. COMMENT: Quality ID [id number]: Final reports for procedures using fluoroscopy that document radiation exp osure indices, or exposure time and number of fluorographic images (if radiation exposure indices are not available) Please consult full operative report of the attending physician for description of the procedure. TECHNICAL DOCUMENTATION: JOB ID: [id number] 2010 [employer]- All Rights Reserved Reading location - IP/workstation name: [email or web address]
== END 2019-12-18 18:20 | disposition home or self-care (01) ==
LOC: OROUT 13:26
PROVIDERS: ATTEND Surgery
DX: C50.911 Malignant neoplasm of unspecified site of right female breast (principal); C77.3 Secondary and unspecified malignant neoplasm of axilla and upper limb lymph nodes; E11.9 Type 2 diabetes mellitus without complications; I10 Essential (primary) hypertension; F17.210 Nicotine dependence, cigarettes, uncomplicated; Z79.899 Other long term (current) drug therapy; Z79.84 Long term (current) use of oral hypoglycemic drugs; Z03.818 Encounter for observation for suspected exposure to other biological agents ruled out; Z86.73 Personal history of transient ischemic attack (TIA), and cerebral infarction without residual deficits
CPT/HCPCS: 36415 ×2; 82962; 84132; 85027; 71045; 77001; 36561; C1752; C1788; U0003; J2250; J3010; J3490 ×2; J2405; J7060; J2704; J3370; J1642; C9803; 532; 87635

== ENCOUNTER 2019-12-25 08:49 | Outpatient (CLI) | payer MEDICARE, OTHER ==
[~2019-12-25 08:49] MED LIST changes: -ACETAMINOPHEN 325 MG TABLET PO PRN; -CLINDAMYCIN 600 MG/D5W RTU 600 MG/50 ML RTUPB IV PRN; +CYCLOPHOSPHAMIDE IV PRN; +DEXAMETHASONE SOD PHOSPHATE 20 MG in NORMAL SALINE 50 ML IV PRN; +DIPHENHYDRAMINE 50 MG in NS 50 ML IV PRN; +DOCETAXEL IV PRN; +FAMOTIDINE 20 MG in NS 50 ML IV PRN; +FOSAPREPITANT 150 MG in NS 150 ML IV PRN; -LACTATED RINGERS 1000 ML IV PRN; -LIDOCAINE 0.5% INJ-PF (5 MG/ML) 50 ML SDV SUBCUT PRN; -LIDOCAINE 1%/EPINEPHRINE INJ 20 ML VIAL ONE; +NORMAL SALINE 500 ML @ KVO IV PRN; +NORMAL SALINE IV PRN; +PALONOSETRON 0.25 MG/5 ML SDV IV PRN
[2019-12-25 09:30] VITALS: BP 184/79
== END 2019-12-25 14:00 | disposition home or self-care (01) ==
LOC: II 08:49 → 5TH 08:52 → II 14:00
PROVIDERS: ATTEND Internal Medicine
DX: Z51.11 Encounter for antineoplastic chemotherapy (principal); C50.411 Malignant neoplasm of upper-outer quadrant of right female breast
CPT/HCPCS: 96413; 96415; 96367; 96375; J9070; J1200; J7050 ×2; S0028; J1100; J1453; J2469; J9171; J1642

== ENCOUNTER 2019-12-26 12:57 | Outpatient (CLI) | payer MEDICARE, OTHER ==
[~2019-12-26 12:57] MED LIST changes: -CYCLOPHOSPHAMIDE IV PRN; -DEXAMETHASONE SOD PHOSPHATE 20 MG in NORMAL SALINE 50 ML IV PRN; -DIPHENHYDRAMINE 50 MG in NS 50 ML IV PRN; -DOCETAXEL IV PRN; -FAMOTIDINE 20 MG in NS 50 ML IV PRN; -FOSAPREPITANT 150 MG in NS 150 ML IV PRN; -NORMAL SALINE 500 ML @ KVO IV PRN; -NORMAL SALINE IV PRN; -PALONOSETRON 0.25 MG/5 ML SDV IV PRN; +PEGFILGRASTIM-CBQV 6 MG/0.6 ML SYRINGE SUBCUT PRN
[2019-12-26 13:07] VITALS: BP 153/84
== END 2019-12-26 13:19 | disposition home or self-care (01) ==
LOC: II 12:57 → 5TH 13:16 → II 13:19
PROVIDERS: ATTEND Internal Medicine
DX: Z76.89 Persons encountering health services in other specified circumstances (principal); C50.411 Malignant neoplasm of upper-outer quadrant of right female breast
CPT/HCPCS: 96372; Q5111

== ENCOUNTER 2020-01-17 11:49 | Day surgery (SDC) | payer MEDICARE, OTHER ==
[~2020-01-17 11:49] MED LIST changes: +ACETAMINOPHEN 325 MG TABLET PO PRN; +LACTATED RINGERS 1000 ML IV PRN; +LIDOCAINE 0.5% INJ-PF (5 MG/ML) 50 ML SDV SUBCUT PRN; -PEGFILGRASTIM-CBQV 6 MG/0.6 ML SYRINGE SUBCUT PRN; +VANCOMYCIN HCL 1,000 MG in DEXTROSE 5%-WATER 250 ML IV PRN
[2020-01-17] MEDS ORDERED: ACETAMINOPHEN 325 MG TABLET ONE (13:39)
[2020-01-17] MEDS: IBUPROFEN 800 MG in NORMAL SALINE 250 ML IV PRN ×2 (13:43→16:55)
[2020-01-17] MEDS ORDERED: PROPOFOL INJ 200 MG/20 ML VIAL IV ONE ×2 (14:34→16:59)
[2020-01-17] MEDS ORDERED: FENTANYL CITRATE INJ/PF 100 MCG/2 ML AMPUL ONE (14:34)
[2020-01-17] MEDS ORDERED: MIDAZOLAM 2 MG/2 ML INJ ONE (14:34)
[2020-01-17] MEDS ORDERED: LIDOCAINE 1% INJ-PF (10 MG/ML) 30 ML SDV ONE (15:50)
[2020-01-17] MEDS ORDERED: BUPIVACAINE HCL 0.25 % INJ/PF (2.5 MG/1 ML) 30 ML VIAL ONE (15:50)
[2020-01-17] MEDS ORDERED: MEPERIDINE HCL/PF INJ 25 MG/1 ML DISP.SYRIN IV PRN (16:38)
[2020-01-17] MEDS ORDERED: PROMETHAZINE HCL INJ 25 MG/1 ML VIAL IV PRN ×2 (16:38)
[2020-01-17] MEDS ORDERED: DIPHENHYDRAMINE HCL 50 MG/ML VIAL IV PRN (16:38)
[2020-01-17] MEDS ORDERED: MORPHINE SULFATE 10 MG/ML INJ IV PRN (16:38)
[2020-01-17] MEDS ORDERED: FENTANYL CITRATE INJ/PF 100 MCG/2 ML AMPUL IV PRN ×3 (16:38)
--- NOTE | 2020-01-17 16:55 | Discharge Summary ---
Discharge Summary (SDC) - Discharge Final Diagnosis: Infected sebaceous cyst of the back Date of Surgery: 01/17/20 Discharge Date: 01/17/20 Condition: Stable Treatment or Instructions: Discharge home. Diet as tolerated. Activity: Nonstrenuous. Follow-up with [place] [facility] next week. [employer] 5/325 mg p.o. every 6 hours as needed for pain. Bactrim DS p.o. twice daily x7 days. Okay to remove packing tomor row. Place a dry dressing over top of incision and change daily. Okay to shower. Prescriptions: Sulfamethoxazole/Trimethoprim [Bactrim Ds Tablet] 1 each PO BID #14 tablet Hydrocodone/Acetaminophen [[employer] 5-325 mg Tablet] 1 tab PO Q6HP PRN #10 tablet PRN Reason: For Pain Referrals: BALBINA GUERRERO PA [Primary Care Provider] - Discharge Diet: As Tolerated Respiratory Treatments at Home: Deep Breathing/Coughing, Incentive Spirometer Discharge Activity: Balance Activity w/Rest Home Care Assistance: None Needed Report the Following to Your Physician Immediately: Shortness of Breath, Nausea, Vomiting, Fever over 101 Degrees, Unusual Bleeding, Redness
[2020-01-17 18:30] VITALS: BP 108/56
--- NOTE | 2020-01-21 08:58 | Operative Report ---
Nonrecallable Operative Report DATE OF SURGERY: 01/17/20 PREOPERATIVE DIAGNOSIS: Infected back cyst POSTOPERATIVE DIAGNOSIS: 9 centimeter sebaceous cyst of the back, infected OPERATION: Excision of 9 cm infected sebaceous cyst of the back SURGEON: WILI GONZÁLES ANESTHESIA: LMAC TISSUE REMOVED OR ALTERED: Sebaceous cyst of the back, 9 centimeter COMPLICATIONS: None apparent ESTIMATED BLOOD LOSS: Minimal PROCEDURE: Drains/implants: 4 x 4 gauze packing. Procedure in detail: After informed consent was obtained, the patient was brought into the operating room and laid in the left lateral decubitus position. The area of the back was prepped and draped in a normal sterile fashion. A 15 blade scalpel was used to create a 9 cm elliptical incision spanning the width of the large sebaceous cyst of the back. Dissection was carried through the subcutaneous tissues using sharp dissection and electrocautery. The cyst was excised completely, down to the muscles of the back. Hemostasis was achieved using electrocautery and suture ligations. After the cyst was completely removed, the middle of the wound was loosely approximated using 0 Vicryl suture in subcuticular fashion. The ends of the wound were left open, and packed with 4 x 4 gauze. A dressing was placed, and the procedure was concluded. All spon ge, instrument, and needle counts were correct x2. Condition: Stable.
== END 2020-01-17 18:25 | disposition home or self-care (01) ==
LOC: OROUT 11:49
PROVIDERS: ATTEND Surgery
DX: L72.0 Epidermal cyst (principal); E11.9 Type 2 diabetes mellitus without complications; I10 Essential (primary) hypertension; C50.911 Malignant neoplasm of unspecified site of right female breast; C77.3 Secondary and unspecified malignant neoplasm of axilla and upper limb lymph nodes; Z79.899 Other long term (current) drug therapy; Z79.84 Long term (current) use of oral hypoglycemic drugs; Z03.818 Encounter for observation for suspected exposure to other biological agents ruled out; Z87.891 Personal history of nicotine dependence; Z90.11 Acquired absence of right breast and nipple
CPT/HCPCS: 36415; 82962; 84132; 88304 ×2; 00300; 11406; U0003; A9270; J2250; J3010; J3490; J7060; J7050; J2704; J3370; J1741; C9803; 300; 87635

== ENCOUNTER 2020-01-22 08:53 | Outpatient (CLI) | payer MEDICARE, OTHER ==
[~2020-01-22 08:53] MED LIST changes: -ACETAMINOPHEN 325 MG TABLET PO PRN; +CYCLOPHOSPHAMIDE IV PRN; +DEXAMETHASONE SOD PHOSPHATE 20 MG in NORMAL SALINE 50 ML IV PRN; +DIPHENHYDRAMINE 50 MG in NS 50 ML IV PRN; +DOCETAXEL IV PRN; +FAMOTIDINE 20 MG in NS 50 ML IV PRN; +FOSAPREPITANT 150 MG in NS 150 ML IV PRN; -LACTATED RINGERS 1000 ML IV PRN; -LIDOCAINE 0.5% INJ-PF (5 MG/ML) 50 ML SDV SUBCUT PRN; +NORMAL SALINE 500 ML @ KVO IV PRN; +NORMAL SALINE IV PRN; +PALONOSETRON 0.25 MG/5 ML VIAL IV PRN; -VANCOMYCIN HCL 1,000 MG in DEXTROSE 5%-WATER 250 ML IV PRN
[2020-01-22 09:13] VITALS: BP 116/70
--- OUTSIDE RECORDS SUMMARY | 2020-01-23 18:12 | XMS REPORT ---
:1950 [facility] [address] [place] [id number] Care Team Providers Name Role Phone Stephanie Deleon Attending Clinician Unavailable Allergies, Adverse Reactions, Alerts Allergy Name Allergy Status Severity Reaction(s) Onset Inactive Treat ing Comments Type Date Date Clinician Penicillins Allergy Active to Drug (Finding) Medications Ordered Filled Start Stop Current Ordering Indication Dosage Frequency Signature Comments Components Medication Medication Date Date Medication? Clinician (SIG) Name Name Heparin 2019-03 2020- Yes 5mL Sodium Lock 015 Flush 00:00: 00:00 00 :00 Udenyca 2019-0 2020- No 6mg 10-23 00:00: 00:00 00 :00 Cytoxan 2020-0 Yes 1000mg 8 00:00: 00 Dexamethaso 2020-0 Yes 20mg ne Sodium 10-22 Phosphate 00:00: 00 DiphenhydrA 2019-0 Yes 50mg MINE HCl 10-22 00:00: 00 Docetaxel 2020-0 Yes 130mg 12 00:00: 00 Famotidine 2020-0 Yes 20mg - 00:00: 00 Hydration 2020-0 Yes 500mL 500mL NS 10-22 00:00: 00 Fosaprepita 2020-0 2020- No 150mg nt 10-2215 Dimeglumine 00:00: 00:00 00 :00 Palonosetro 2020-0 2020- No .25mg n HCl 10-22 00:00: 00:00 00 :00 Promethazin 2020-0 Yes 1 e HCl 8 00:00: 00 Zofran ODT 2020-0 Yes 1 8-05 00:00: 00 Bactrim DS Yes 1 HYDROcodone Yes 1 -Acetaminop hen hydroCHLORO Yes 1 thiazide Losartan Yes 1 Potassium Problems Condition Condition Condition Status Onset Resolution Last Treatin g Comments Name Details Category Date Date Treatment Clinician Date Melena Melena 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 Procedures Procedure Date / Time Performed Performing Clinician Arya Summers mastectomy/SN dissection 2019-03-13 00:00:00 hysterectomy Results Test Description Test Time Test Comments Text Results Atomic Results Result Comments Iron, Total 2020-01-21 15:23:00 Test Item Value Reference Range Comments Iron, Total (test code = Iron, Total) 34.0000 27.0000-13 9.0000 TIBC (test code = TIBC) 262.0000 250.0000-450.0000 UIBC (test code = UIBC) 228.0000 118.0000-369.0000 % Iron Saturation (test code = % Iron Saturation) 13.0000 % 15.0000-55.0000 Ferritin (test code = Ferritin) 233.0000 ng/mL 15.0000-150.0000 [id number] 13:45:00 Test Item Value Reference Range Comments WBC (test code = WBC) 7.8000 4.0000-10.0000 Lymphocytes % (test code = Lymphocytes %) 24.5000 % 22.400 0-43.6000 MID% (test code = MID%) 5.8000 % 1.2000-11.2000 Neutrophils % (test code = Neutrophils %) 69.7000 % 48.900 0-69.9000 Lymphocytes (test code = Lymphocytes) 1.9000 1.2000-3.2 000 MID (test code = MID) 0.5000 0.1000-1.1000 Neutrophils (test code = Neutrophils) 5.4000 1.5000-6.7 000 RBC (test code = RBC) 3.0600 3.7000-4.9000 HGB (test code = HGB) 8.9000 g/dL 11.2000-18.0000 HCT (test code = HCT) 27.9000 % 34.0000-44.0000 MCV (test code = MCV) 91.2000 fL 80.0000-94.0000 MCH (test code = MCH) 29.0000 pg 27.0000-34.0000 MCHC (test code = MCHC) 31.8000 g/dL 31.5000-36.0000 RDW (test code = RDW) 16.7000 11.0000-18.0000 PLT (test code = PLT) 403.0000 140.0000-440.0000 MPV (test code = MPV) 8.1000 fL 6.8000-10.6000 [id number] 13:45:00 Test Item Value Reference Range Comments Creatinine (test code = Creatinine) 1.1000 mg/dL 0.5000-1.200 0 Cr Clearance (Est) (test code = Cr 53.3100 75.0000-115.0 000 Clearance (Est)) Glucose (test code = Glucose) 154.0000 mg/dL 70.0000-118.0000 BUN (test code = BUN) 27.0000 mg/dL 7.0000-22.0000 Sodium (test code = Sodium) 140.0000 mmol/L 128.0000-145.0000 Potassium (test code = Potassium) 4.1000 mmol/L 3.6000-5.1000 Chloride (test code = Chloride) 105.0000 mmol/L 96.0000-108.0000 CO2 (test code = CO2) 28.0000 mmol/L 18.0000-33.0000 Calcium (test code = Calcium) 9.4400 mg/dL 8.0000-10.3000 Alkaline Phosphatase (test code = Alkaline 59.0000 42.00 00-141.0000 Phosphatase) ALT (SGPT) (test code = ALT (SGPT)) 12.0000 10.0000-47.0 000 AST (SGOT) (test code = AST (SGOT)) 13.0000 11.0000-37.0 000 Bilirubin, Total (test code = Bilirubin, 0.3000 mg/dL 0.0000- 1.6000 Total) Albumin (test code = Albumin) 4.3000 g/dL 3.5000-5.5000 Protein, Total (test code = Protein, 6.8000 g/dL 6.4000-8.10 00 Total) eGFR -Turkish (test code = eGFR 60.0000 60.0000- 200.0000 -Turkish) eGFR Xrm-Raqxuct-Oibopdue (test code = 50.0000 60.0000-2 00.0000 eGFR Pun-Zbhyfop-Fxjvquim) [id number] 13:58:00 Test Item Value Reference Range Comments WBC (test code = WBC) 8.4000 4.0000-10.0000 Lymphocytes % (test code = Lymphocytes %) 23.1000 % 22.400 0-43.6000 MID% (test code = MID%) 7.8000 % 1.2000-11.2000 Neutrophils % (test code = Neutrophils %) 69.1000 % 48.900 0-69.9000 Lymphocytes (test code = Lymphocytes) 1.9000 1.2000-3.2 000 MID (test code = MID) 0.7000 0.1000-1.1000 Neutrophils (test code = Neutrophils) 5.8000 1.5000-6.7 000 RBC (test code = RBC) 3.1600 3.7000-4.9000 HGB (test code = HGB) 9.7000 g/dL 11.2000-18.0000 HCT (test code = HCT) 29.1000 % 34.0000-44.0000 MCV (test code = MCV) 92.1000 fL 80.0000-94.0000 MCH (test code = MCH) 30.6000 pg 27.0000-34.0000 MCHC (test code = MCHC) 33.2000 g/dL 31.5000-36.0000 RDW (test code = RDW) 17.0000 11.0000-18.0000 PLT (test code = PLT) 403.0000 140.0000-440.0000 MPV (test code = MPV) 8.5000 fL 6.8000-10.6000 [id number] 13:58:00 Test Item Value Reference Range Comments Creatinine (test code = Creatinine) 0.6000 mg/dL 0.5000-1.200 0 Cr Clearance (Est) (test code = Cr 99.8100 75.0000-115.0 000 Clearance (Est)) Glucose (test code = Glucose) 181.0000 mg/dL 70.0000-118.0000 BUN (test code = BUN) 16.0000 mg/dL 7.0000-22.0000 Sodium (test code = Sodium) 141.0000 mmol/L 128.0000-145.0000 Potassium (test code = Potassium) 3.5000 mmol/L 3.6000-5.1000 Chloride (test code = Chloride) 105.0000 mmol/L 96.0000-108.0000 CO2 (test code = CO2) 30.0000 mmol/L 18.0000-33.0000 Calcium (test code = Calcium) 8.9000 mg/dL 8.0000-10.3000 Alkaline Phosphatase (test code = Alkaline 71.0000 42.00 00-141.0000 Phosphatase) ALT (SGPT) (test code = ALT (SGPT)) 12.0000 10.0000-47.0 000 AST (SGOT) (test code = AST (SGOT)) 11.0000 11.0000-37.0 000 Bilirubin, Total (test code = Bilirubin, 0.2000 mg/dL 0.0000- 1.6000 Total) Albumin (test code = Albumin) 4.2000 g/dL 3.5000-5.5000 Protein, Total (test code = Protein, 6.3000 g/dL 6.4000-8.10 00 Total) eGFR -Turkish (test code = eGFR 121.0000 60.0000- 200.0000 -Turkish) eGFR Nlg-Gfhigmb-Wlcoegcj (test code = 100.0000 60.0000-2 00.0000 eGFR Pyq-Qnbcanw-Anskllpv) [id number] 12:08:00 Test Item Value Reference Range Comments WBC (test code = WBC) 7.7000 4.0000-10.0000 Lymphocytes % (test code = Lymphocytes %) 27.8000 % 22.400 0-43.6000 MID% (test code = MID%) 8.8000 % 1.2000-11.2000 Neutrophils % (test code = Neutrophils %) 63.4000 % 48.900 0-69.9000 Lymphocytes (test code = Lymphocytes) 2.1000 1.2000-3.2 000 MID (test code = MID) 0.7000 0.1000-1.1000 Neutrophils (test code = Neutrophils) 4.9000 1.5000-6.7 000 RBC (test code = RBC) 2.8900 3.7000-4.9000 HGB (test code = HGB) 8.9000 g/dL 11.2000-18.0000 HCT (test code = HCT) 26.5000 % 34.0000-44.0000 MCV (test code = MCV) 91.6000 fL 80.0000-94.0000 MCH (test code = MCH) 30.9000 pg 27.0000-34.0000 MCHC (test code = MCHC) 33.7000 g/dL 31.5000-36.0000 RDW (test code = RDW) 16.8000 11.0000-18.0000 PLT (test code = PLT) 234.0000 140.0000-440.0000 MPV (test code = MPV) 8.7000 fL 6.8000-10.6000 [id number] 12:03:00 Test Item Value Reference Range Comments RDW (test code = RDW) 17.3000 11.0000-18.0000 HCT (test code = HCT) 26.2000 % 34.0000-44.0000 Lymphocytes % (test code = Lymphocytes %) 13.7000 % 22.400 0-43.6000 MID% (test code = MID%) 5.2000 % 1.2000-11.1999 Neutrophils % (test code = Neutrophils %) 81.1000 % 48.900 0-69.9000 MCH (test code = MCH) 27.6000 pg 27.0000-34.0000 MPV (test code = MPV) 9.1000 fL 6.8000-10.6000 MCV (test code = MCV) 90.0000 fL 80.0000-94.0000 MCHC (test code = MCHC) 30.7000 g/dL 31.5000-36.0000 HGB (test code = HGB) 8.0000 g/dL 11.2000-18.0000 RBC (test code = RBC) 2.9100 3.7000-4.9000 PLT (test code = PLT) 235.0000 140.0000-440.0000 WBC (test code = WBC) 26.3000 4.0000-10.0000 Lymphocytes (test code = Lymphocytes) 3.6000 1.2000-3.2 000 MID (test code = MID) 1.4000 0.1000-1.1000 Neutrophils (test code = Neutrophils) 21.3000 1.5000-6.7 000 [id number] 12:03:00 Test Item Value Reference Range Comments WBC (test code = WBC) 26.3000 4.0000-10.0000 Lymphocytes % (test code = Lymphocytes %) 13.7000 % 22.400 0-43.6000 MID% (test code = MID%) 5.2000 % 1.2000-11.1999 Neutrophils % (test code = Neutrophils %) 81.1000 % 48.900 0-69.9000 Lymphocytes (test code = Lymphocytes) 3.6000 1.2000-3.2 000 MID (test code = MID) 1.4000 0.1000-1.1000 Neutrophils (test code = Neutrophils) 21.3000 1.5000-6.7 000 RBC (test code = RBC) 2.9100 3.7000-4.9000 HGB (test code = HGB) 8.0000 g/dL 11.2000-18.0000 HCT (test code = HCT) 26.2000 % 34.0000-44.0000 MCV (test code = MCV) 90.0000 fL 80.0000-94.0000 MCH (test code = MCH) 27.6000 pg 27.0000-34.0000 MCHC (test code = MCHC) 30.7000 g/dL 31.5000-36.0000 RDW (test code = RDW) 17.3000 11.0000-18.0000 PLT (test code = PLT) 235.0000 140.0000-440.0000 MPV (test code = MPV) 9.1000 fL 6.8000-10.6000 [id number] 14:03:00 Test Item Value Reference Range Comments WBC (test code = WBC) 6.9000 4.0000-10.0000 Lymphocytes % (test code = Lymphocytes %) 27.0000 % 22.400 0-43.6000 MID% (test code = MID%) 6.4000 % 1.2000-11.2000 Neutrophils % (test code = Neutrophils %) 66.6000 % 48.900 0-69.9000 Lymphocytes (test code = Lymphocytes) 1.8000 1.2000-3.2 000 MID (test code = MID) 0.5000 0.1000-1.1000 Neutrophils (test code = Neutrophils) 4.6000 1.5000-6.7 000 RBC (test code = RBC) 3.3600 3.7000-4.9000 HGB (test code = HGB) 9.8000 g/dL 11.2000-18.0000 HCT (test code = HCT) 30.7000 % 34.0000-44.0000 MCV (test code = MCV) 91.3000 fL 80.0000-94.0000 MCH (test code = MCH) 29.3000 pg 27.0000-34.0000 MCHC (test code = MCHC) 32.0000 g/dL 31.5000-36.0000 RDW (test code = RDW) 16.3000 11.0000-18.0000 PLT (test code = PLT) 350.0000 140.0000-440.0000 MPV (test code = MPV) 7.9000 fL 6.8000-10.6000 [id number] 14:03:00 Test Item Value Reference Range Comments Creatinine (test code = Creatinine) 0.6000 mg/dL 0.5000-1.200 0 Cr Clearance (Est) (test code = Cr 99.2900 75.0000-115.0 000 Clearance (Est)) Glucose (test code = Glucose) 229.0000 mg/dL 70.0000-118.0000 BUN (test code = BUN) 17.0000 mg/dL 7.0000-22.0000 Sodium (test code = Sodium) 141.0000 mmol/L 128.0000-145.0000 Potassium (test code = Potassium) 3.9000 mmol/L 3.6000-5.1000 Chloride (test code = Chloride) 106.0000 mmol/L 96.0000-108.0000 CO2 (test code = CO2) 28.0000 mmol/L 18.0000-33.0000 Calcium (test code = Calcium) 9.4800 mg/dL 8.0000-10.3000 Alkaline Phosphatase (test code = Alkaline 55.0000 42.00 00-141.0000 Phosphatase) ALT (SGPT) (test code = ALT (SGPT)) 9.0000 10.0000-47.0 000 AST (SGOT) (test code = AST (SGOT)) 9.0000 11.0000-37.0 000 Bilirubin, Total (test code = Bilirubin, 0.4000 mg/dL 0.0000- 1.6000 Total) Albumin (test code = Albumin) 4.2000 g/dL 3.5000-5.5000 Protein, Total (test code = Protein, 6.4000 g/dL 6.4000-8.10 00 Total) eGFR -Turkish (test code = eGFR 121.0000 60.0000- 200.0000 -Turkish) eGFR Fua-Ukxwlts-Iijfkeyg (test code = 100.0000 60.0000-2 00.0000 eGFR Oys-Cyrnypb-Apfavezl) Bilirubin, [id number] 14:03:00 Test Item Value Reference Range Comments Bilirubin, Total (test code = Bilirubin, 0.4000 mg/dL 0.0000- 1.6000 Total) BUN (test code = BUN) 17.0000 mg/dL 7.0000-22.0000 Creatinine (test code = Creatinine) 0.6000 mg/dL 0.5000-1.200 0 Calcium (test code = Calcium) 9.4800 mg/dL 8.0000-10.3000 Albumin (test code = Albumin) 4.2000 g/dL 3.5000-5.5000 Glucose (test code = Glucose) 229.0000 mg/dL 70.0000-118.0000 Protein, Total (test code = Protein, 6.4000 g/dL 6.4000-8.10 00 Total) eGFR -Turkish (test code = eGFR 121.0000 60.0000- 200.0000 -Turkish) eGFR Veb-Iebklch-Jconmxcf (test code = 100.0000 60.0000-2 00.0000 eGFR Knf-Ssmlaes-Eesdgniy) Potassium (test code = Potassium) 3.9000 mmol/L 3.6000-5.1000 Sodium (test code = Sodium) 141.0000 mmol/L 128.0000-145.0000 Cr Clearance (Est) (test code = Cr 99.2900 75.0000-115.0 000 Clearance (Est)) ALT (SGPT) (test code = ALT (SGPT)) 9.0000 10.0000-47.0 000 AST (SGOT) (test code = AST (SGOT)) 9.0000 11.0000-37.0 000 Chloride (test code = Chloride) 106.0000 mmol/L 96.0000-108.0000 CO2 (test code = CO2) 28.0000 mmol/L 18.0000-33.0000 Alkaline Phosphatase (test code = Alkaline 55.0000 42.00 00-141.0000 Phosphatase) [id number] 14:03:00 Test Item Value Reference Range Comments Neutrophils (test code = Neutrophils) 4.6000 1.5000-6.7 000 MID (test code = MID) 0.5000 0.1000-1.1000 Lymphocytes (test code = Lymphocytes) 1.8000 1.2000-3.2 000 PLT (test code = PLT) 350.0000 140.0000-440.0000 WBC (test code = WBC) 6.9000 4.0000-10.0000 RBC (test code = RBC) 3.3600 3.7000-4.9000 MCHC (test code = MCHC) 32.0000 g/dL 31.5000-36.0000 HGB (test code = HGB) 9.8000 g/dL 11.2000-18.0000 MPV (test code = MPV) 7.9000 fL 6.8000-10.6000 MCV (test code = MCV) 91.3000 fL 80.0000-94.0000 MCH (test code = MCH) 29.3000 pg 27.0000-34.0000 Neutrophils % (test code = Neutrophils %) 66.6000 % 48.900 0-69.9000 MID% (test code = MID%) 6.4000 % 1.2000-11.2000 Lymphocytes % (test code = Lymphocytes %) 27.0000 % 22.400 0-43.6000 HCT (test code = HCT) 30.7000 % 34.0000-44.0000 RDW (test code = RDW) 16.3000 11.0000-18.0000 [id number] 13:28:00 Test Item Value Reference Range Comments WBC (test code = WBC) 9.7000 4.0000-10.0000 Lymphocytes % (test code = Lymphocytes %) 22.3000 % 22.400 0-43.6000 MID% (test code = MID%) 5.8000 % .2000-11.1999 Neutrophils % (test code = Neutrophils %) 71.9000 % 48.900 0-69.9000 Lymphocytes (test code = Lymphocytes) 2.1000 1.2000-3.2 000 MID (test code = MID) 0.7000 0.1000-1.1000 Neutrophils (test code = Neutrophils) 6.9000 1.5000-6.7 000 RBC (test code = RBC) 3.1900 3.7000-4.9000 HGB (test code = HGB) 9.9000 g/dL 11.2000-18.0000 HCT (test code = HCT) 29.1000 % 34.0000-44.0000 MCV (test code = MCV) 91.1000 fL 80.0000-94.0000 MCH (test code = MCH) 31.0000 pg 27.0000-34.0000 MCHC (test code = MCHC) 34.0000 g/dL 31.5000-36.0000 RDW (test code = RDW) 17.3000 11.0000-18.0000 PLT (test code = PLT) 377.0000 140.0000-440.0000 MPV (test code = MPV) 8.3000 fL 6.8000-10.6000 [id number] 13:28:00 Test Item Value Reference Range Comments Creatinine (test code = Creatinine) 0.6000 mg/dL 0.5000-1.200 0 Cr Clearance (Est) (test code = Cr 97.3400 75.0000-115.0 000 Clearance (Est)) Glucose (test code = Glucose) 217.0000 mg/dL 70.0000-118.0000 BUN (test code = BUN) 23.0000 mg/dL 7.0000-22.0000 Sodium (test code = Sodium) 141.0000 mmol/L 128.0000-145.0000 Potassium (test code = Potassium) 3.7000 mmol/L 3.6000-5.1000 Chloride (test code = Chloride) 105.0000 mmol/L 96.0000-108.0000 CO2 (test code = CO2) 29.0000 mmol/L 18.0000-33.0000 Calcium (test code = Calcium) 10.3100 mg/dL 8.0000-10.3000 Alkaline Phosphatase (test code = Alkaline 77.0000 42.00 00-141.0000 Phosphatase) ALT (SGPT) (test code = ALT (SGPT)) 12.0000 10.0000-47.0 000 AST (SGOT) (test code = AST (SGOT)) 9.0000 11.0000-37.0 000 Bilirubin, Total (test code = Bilirubin, 0.3000 mg/dL 0.0000- 1.6000 Total) Albumin (test code = Albumin) 4.3000 g/dL 3.5000-5.5000 Protein, Total (test code = Protein, 7.1000 g/dL 6.4000-8.10 00 Total) eGFR -Turkish (test code = eGFR 121.0000 60.0000- 200.0000 -Turkish) eGFR Mad-Oxahljg-Ahmjwnba (test code = 100.0000 60.0000-2 00.0000 eGFR Kmz-Uyjtcww-Jzbkpzkw) [id number] 13:28:00 Test Item Value Reference Range Comments RDW (test code = RDW) 17.3000 11.0000-18.0000 HCT (test code = HCT) 29.1000 % 34.0000-44.0000 Lymphocytes % (test code = Lymphocytes %) 22.3000 % 22.400 0-43.6000 MID% (test code = MID%) 5.8000 % 1.2000-11.2000 Neutrophils % (test code = Neutrophils %) 71.9000 % 48.900 0-69.9000 MCH (test code = MCH) 31.0000 pg 27.0000-34.0000 MCV (test code = MCV) 91.1000 fL 80.0000-94.0000 MPV (test code = MPV) 8.3000 fL 6.8000-10.6000 HGB (test code = HGB) 9.9000 g/dL 11.2000-18.0000 MCHC (test code = MCHC) 34.0000 g/dL 31.5000-36.0000 RBC (test code = RBC) 3.1900 3.7000-4.9000 WBC (test code = WBC) 9.7000 4.0000-10.0000 PLT (test code = PLT) 377.0000 140.0000-440.0000 Lymphocytes (test code = Lymphocytes) 2.1000 1.2000-3.2 000 MID (test code = MID) 0.7000 0.1000-1.1000 Neutrophils (test code = Neutrophils) 6.9000 1.5000-6.7 000 Alkaline [id number] 13:28:00 Test Item Value Reference Range Comments Alkaline Phosphatase (test code = Alkaline 77.0000 42.00 00-141.0000 Phosphatase) CO2 (test code = CO2) 29.0000 mmol/L 18.0000-33.0000 AST (SGOT) (test code = AST (SGOT)) 9.0000 11.0000-37.0 000 Chloride (test code = Chloride) 105.0000 mmol/L 96.0000-108.0000 ALT (SGPT) (test code = ALT (SGPT)) 12.0000 10.0000-47.0 000 Cr Clearance (Est) (test code = Cr 97.3400 75.0000-115.0 000 Clearance (Est)) eGFR Hen-Mnufotn-Ipctbyqs (test code = 100.0000 60.0000-2 00.0000 eGFR Dxc-Eantltf-Syxdubcn) Potassium (test code = Potassium) 3.7000 mmol/L 3.6000-5.1000 Sodium (test code = Sodium) 141.0000 mmol/L 128.0000-145.0000 eGFR -Turkish (test code = eGFR 121.0000 60.0000- 200.0000 -Turkish) Glucose (test code = Glucose) 217.0000 mg/dL 70.0000-118.0000 Albumin (test code = Albumin) 4.3000 g/dL 3.5000-5.5000 Protein, Total (test code = Protein, 7.1000 g/dL 6.4000-8.10 00 Total) Calcium (test code = Calcium) 10.3100 mg/dL 8.0000-10.3000 Creatinine (test code = Creatinine) 0.6000 mg/dL 0.5000-1.200 0 Bilirubin, Total (test code = Bilirubin, 0.3000 mg/dL 0.0000- 1.6000 Total) BUN (test code = BUN) 23.0000 mg/dL 7.0000-22.0000 Occult [id number] 14:21:24 Test Item Value Reference Range Comments Occult Blood #1 (test code = Occult Blood #1) positive Occult Blood #2 (test code = Occult Blood #2) positive Occult Blood #3 (test code = Occult Blood #3) positive Iron, [id number] 14:57:00 Test Item Value Reference Range Comments Iron, Total (test code = Iron, Total) 38.0000 27.0000-13 9.0000 TIBC (test code = TIBC) 237.0000 250.0000-450.0000 UIBC (test code = UIBC) 199.0000 118.0000-369.0000 % Iron Saturation (test code = % Iron 16.0000 % 15.0000-55 .0000 Saturation) Ferritin (test code = Ferritin) 544.0000 ng/mL 15.0000-150.0000 [id number] 14:57:00 Test Item Value Reference Range Comments UIBC (test code = UIBC) 199.0000 118.0000-369.0000 Iron, Total (test code = Iron, Total) 38.0000 27.0000-13 9.0000 TIBC (test code = TIBC) 237.0000 250.0000-450.0000 Ferritin (test code = Ferritin) 544.0000 ng/mL 15.0000-150.0000 % Iron Saturation (test code = % Iron 16.0000 % 15.0000-55 .0000 Saturation) [id number] 13:28:00 Test Item Value Reference Range Comments WBC (test code = WBC) 9.6000 4.0000-10.0000 Lymphocytes % (test code = Lymphocytes %) 22.6000 % 22.400 0-43.6000 MID% (test code = MID%) 6.3000 % 1.2000-11.2000 Neutrophils % (test code = Neutrophils %) 71.1000 % 48.900 0-69.9000 Lymphocytes (test code = Lymphocytes) 2.1000 1.2000-3.2 000 MID (test code = MID) 0.7000 0.1000-1.1000 Neutrophils (test code = Neutrophils) 6.8000 1.5000-6.7 000 RBC (test code = RBC) 3.4400 3.7000-4.9000 HGB (test code = HGB) 9.9000 g/dL 11.2000-18.0000 HCT (test code = HCT) 30.5000 % 34.0000-44.0000 MCV (test code = MCV) 88.5000 fL 80.0000-94.0000 MCH (test code = MCH) 28.8000 pg 27.0000-34.0000 MCHC (test code = MCHC) 32.6000 g/dL 31.5000-36.0000 RDW (test code = RDW) 15.0000 11.0000-18.0000 PLT (test code = PLT) 511.0000 140.0000-440.0000 MPV (test code = MPV) 8.6000 fL 6.8000-10.6000 [id number] 13:28:00 Test Item Value Reference Range Comments Creatinine (test code = Creatinine) 0.6000 mg/dL 0.5000-1.200 0 Cr Clearance (Est) (test code = Cr 94.9900 75.0000-115.0 000 Clearance (Est)) Glucose (test code = Glucose) 138.0000 mg/dL 70.0000-118.0000 BUN (test code = BUN) 21.0000 mg/dL 7.0000-22.0000 Sodium (test code = Sodium) 138.0000 mmol/L 128.0000-145.0000 Potassium (test code = Potassium) 3.5000 mmol/L 3.6000-5.1000 Chloride (test code = Chloride) 103.0000 mmol/L 96.0000-108.0000 CO2 (test code = CO2) 27.0000 mmol/L 18.0000-33.0000 Calcium (test code = Calcium) 9.4800 mg/dL 8.0000-10.3000 Alkaline Phosphatase (test code = Alkaline 66.0000 42.00 00-141.0000 Phosphatase) ALT (SGPT) (test code = ALT (SGPT)) 10.0000 10.0000-47.0 000 AST (SGOT) (test code = AST (SGOT)) 10.0000 11.0000-37.0 000 Bilirubin, Total (test code = Bilirubin, 0.4000 mg/dL 0.0000- 1.6000 Total) Albumin (test code = Albumin) 4.2000 g/dL 3.5000-5.5000 Protein, Total (test code = Protein, 6.9000 g/dL 6.4000-8.10 00 Total) eGFR -Turkish (test code = eGFR 121.0000 60.0000- 200.0000 -Turkish) eGFR Wia-Pnjkvrs-Dagplsui (test code = 100.0000 60.0000-2 00.0000 eGFR Pgp-Ltjdujz-Jlxluxou) [id number] 13:28:00 Test Item Value Reference Range Comments MID% (test code = MID%) 6.3000 % 1.2000-11.2000 Lymphocytes % (test code = Lymphocytes %) 22.6000 % 22.400 0-43.6000 HCT (test code = HCT) 30.5000 % 34.0000-44.0000 RDW (test code = RDW) 15.0000 11.0000-18.0000 Neutrophils % (test code = Neutrophils %) 71.1000 % 48.900 0-69.9000 MCH (test code = MCH) 28.8000 pg 27.0000-34.0000 MCHC (test code = MCHC) 32.6000 g/dL 31.5000-36.0000 HGB (test code = HGB) 9.9000 g/dL 11.2000-18.0000 MPV (test code = MPV) 8.6000 fL 6.8000-10.6000 MCV (test code = MCV) 88.5000 fL 80.0000-94.0000 RBC (test code = RBC) 3.4400 3.7000-4.9000 Neutrophils (test code = Neutrophils) 6.8000 1.5000-6.7 000 MID (test code = MID) 0.7000 0.1000-1.1000 Lymphocytes (test code = Lymphocytes) 2.1000 1.2000-3.2 000 WBC (test code = WBC) 9.6000 4.0000-10.0000 PLT (test code = PLT) 511.0000 140.0000-440.0000 Alkaline [id number] 13:28:00 Test Item Value Reference Range Comments Alkaline Phosphatase (test code = Alkaline 66.0000 42.00 00-141.0000 Phosphatase) AST (SGOT) (test code = AST (SGOT)) 10.0000 11.0000-37.0 000 ALT (SGPT) (test code = ALT (SGPT)) 10.0000 10.0000-47.0 000 CO2 (test code = CO2) 27.0000 mmol/L 18.0000-33.0000 Cr Clearance (Est) (test code = Cr 94.9900 75.0000-115.0 000 Clearance (Est)) eGFR -Turkish (test code = eGFR 121.0000 60.0000- 200.0000 -Turkish) eGFR Zdg-Oqechvz-Tfecrgrg (test code = 100.0000 60.0000-2 00.0000 eGFR Ygt-Xtdjgpd-Ujecmpol) Chloride (test code = Chloride) 103.0000 mmol/L 96.0000-108.0000 Potassium (test code = Potassium) 3.5000 mmol/L 3.6000-5.1000 Sodium (test code = Sodium) 138.0000 mmol/L 128.0000-145.0000 Bilirubin, Total (test code = Bilirubin, 0.4000 mg/dL 0.0000- 1.6000 Total) BUN (test code = BUN) 21.0000 mg/dL 7.0000-22.0000 Creatinine (test code = Creatinine) 0.6000 mg/dL 0.5000-1.200 0 Calcium (test code = Calcium) 9.4800 mg/dL 8.0000-10.3000 Albumin (test code = Albumin) 4.2000 g/dL 3.5000-5.5000 Protein, Total (test code = Protein, 6.9000 g/dL 6.4000-8.10 00 Total) Glucose (test code = Glucose) 138.0000 mg/dL 70.0000-118.0000 [id number] 14:03:00 Test Item Value Reference Range Comments WBC (test code = WBC) 14.3000 4.0000-10.0000 Lymphocytes % (test code = Lymphocytes %) 17.9000 % 22.400 0-43.6000 MID% (test code = MID%) 5.5000 % 1.2000-11.2000 Neutrophils % (test code = Neutrophils %) 76.6000 % 48.900 0-69.9000 Lymphocytes (test code = Lymphocytes) 2.5000 1.2000-3.2 000 MID (test code = MID) 0.8000 0.1000-1.1000 Neutrophils (test code = Neutrophils) 11.0000 1.5000-6.7 000 RBC (test code = RBC) 3.4700 3.7000-4.9000 HGB (test code = HGB) 10.0000 g/dL 11.2000-18.0000 HCT (test code = HCT) 30.8000 % 34.0000-44.0000 MCV (test code = MCV) 88.7000 fL 80.0000-94.0000 MCH (test code = MCH) 28.8000 pg 27.0000-34.0000 MCHC (test code = MCHC) 32.5000 g/dL 31.5000-36.0000 RDW (test code = RDW) 14.7000 11.0000-18.0000 PLT (test code = PLT) 168.0000 140.0000-440.0000 MPV (test code = MPV) 9.6000 fL 6.8000-10.6000 [id number] 14:03:00 Test Item Value Reference Range Comments PLT (test code = PLT) 168.0000 140.0000-440.0000 WBC (test code = WBC) 14.3000 4.0000-10.0000 MID (test code = MID) 0.8000 0.1000-1.1000 Neutrophils (test code = Neutrophils) 11.0000 1.5000-6.7 000 Lymphocytes (test code = Lymphocytes) 2.5000 1.2000-3.2 000 RBC (test code = RBC) 3.4700 3.7000-4.9000 MCV (test code = MCV) 88.7000 fL 80.0000-94.0000 MPV (test code = MPV) 9.6000 fL 6.8000-10.6000 HGB (test code = HGB) 10.0000 g/dL 11.2000-18.0000 MCHC (test code = MCHC) 32.5000 g/dL 31.5000-36.0000 MCH (test code = MCH) 28.8000 pg 27.0000-34.0000 Neutrophils % (test code = Neutrophils %) 76.6000 % 48.900 0-69.9000 Lymphocytes % (test code = Lymphocytes %) 17.9000 % 22.400 0-43.6000 RDW (test code = RDW) 14.7000 11.0000-18.0000 HCT (test code = HCT) 30.8000 % 34.0000-44.0000 MID% (test code = MID%) 5.5000 % 1.2000-11.1999 [id number] 15:04:00 Test Item Value Reference Range Comments MID% (test code = MID%) 6.3000 % 1.2000-11.2000 HCT (test code = HCT) 34.5000 % 34.0000-44.0000 RDW (test code = RDW) 14.8000 11.0000-18.0000 Lymphocytes % (test code = Lymphocytes %) 26.5000 % 22.400 0-43.6000 Neutrophils % (test code = Neutrophils %) 67.2000 % 48.900 0-69.9000 MCH (test code = MCH) 28.1000 pg 27.0000-34.0000 MCHC (test code = MCHC) 31.0000 g/dL 31.5000-36.0000 HGB (test code = HGB) 10.7000 g/dL 11.2000-18.0000 MPV (test code = MPV) 10.0000 fL 6.8000-10.6000 MCV (test code = MCV) 90.4000 fL 80.0000-94.0000 RBC (test code = RBC) 3.8100 3.7000-4.9000 WBC (test code = WBC) 9.5000 4.0000-10.0000 Neutrophils (test code = Neutrophils) 6.4000 1.5000-6.7 000 Lymphocytes (test code = Lymphocytes) 2.5000 1.2000-3.2 000 MID (test code = MID) 0.6000 0.1000-1.1000 PLT (test code = PLT) 208.0000 140.0000-440.0000 [id number] 15:04:00 Test Item Value Reference Range Comments WBC (test code = WBC) 9.5000 4.0000-10.0000 Lymphocytes % (test code = Lymphocytes %) 26.5000 % 22.400 0-43.6000 MID% (test code = MID%) 6.3000 % 1.2000-11.2000 Neutrophils % (test code = Neutrophils %) 67.2000 % 48.900 0-69.9000 Lymphocytes (test code = Lymphocytes) 2.5000 1.2000-3.2 000 MID (test code = MID) 0.6000 0.1000-1.1000 Neutrophils (test code = Neutrophils) 6.4000 1.5000-6.7 000 RBC (test code = RBC) 3.8100 3.7000-4.9000 HGB (test code = HGB) 10.7000 g/dL 11.2000-18.0000 HCT (test code = HCT) 34.5000 % 34.0000-44.0000 MCV (test code = MCV) 90.4000 fL 80.0000-94.0000 MCH (test code = MCH) 28.1000 pg 27.0000-34.0000 MCHC (test code = MCHC) 31.0000 g/dL 31.5000-36.0000 RDW (test code = RDW) 14.8000 11.0000-18.0000 PLT (test code = PLT) 208.0000 140.0000-440.0000 MPV (test code = MPV) 10.0000 fL 6.8000-10.6000 [id number] 09:46:00 Test Item Value Reference Range Comments Lymphocytes (test code = Lymphocytes) 1.6000 1.2000-3.2 000 PLT (test code = PLT) 283.0000 140.0000-440.0000 MID (test code = MID) 0.5000 0.1000-1.1000 Neutrophils (test code = Neutrophils) 4.0000 1.5000-6.7 000 WBC (test code = WBC) 6.1000 4.0000-10.0000 RBC (test code = RBC) 4.1300 3.7000-4.9000 MPV (test code = MPV) 9.3000 fL 6.8000-10.6000 MCV (test code = MCV) 92.8000 fL 80.0000-94.0000 HGB (test code = HGB) 12.0000 g/dL 11.2000-18.0000 MCHC (test code = MCHC) 31.3000 g/dL 31.5000-36.0000 MCH (test code = MCH) 29.1000 pg 27.0000-34.0000 Neutrophils % (test code = Neutrophils %) 66.5000 % 48.900 0-69.9000 Lymphocytes % (test code = Lymphocytes %) 27.0000 % 22.400 0-43.6000 MID% (test code = MID%) 6.5000 % 1.2000-11.1999 HCT (test code = HCT) 38.4000 % 34.0000-44.0000 RDW (test code = RDW) 14.7000 11.0000-18.0000 [id number] 09:46:00 Test Item Value Reference Range Comments WBC (test code = WBC) 6.1000 4.0000-10.0000 Lymphocytes % (test code = Lymphocytes %) 27.0000 % 22.400 0-43.6000 MID% (test code = MID%) 6.5000 % 1.2000-11.2000 Neutrophils % (test code = Neutrophils %) 66.5000 % 48.900 0-69.9000 Lymphocytes (test code = Lymphocytes) 1.6000 1.2000-3.2 000 MID (test code = MID) 0.5000 0.1000-1.1000 Neutrophils (test code = Neutrophils) 4.0000 1.5000-6.7 000 RBC (test code = RBC) 4.1300 3.7000-4.9000 HGB (test code = HGB) 12.0000 g/dL 11.2000-18.0000 HCT (test code = HCT) 38.4000 % 34.0000-44.0000 MCV (test code = MCV) 92.8000 fL 80.0000-94.0000 MCH (test code = MCH) 29.1000 pg 27.0000-34.0000 MCHC (test code = MCHC) 31.3000 g/dL 31.5000-36.0000 RDW (test code = RDW) 14.7000 11.0000-18.0000 PLT (test code = PLT) 283.0000 140.0000-440.0000 MPV (test code = MPV) 9.3000 fL 6.8000-10.6000 [id number] 09:45:00 Test Item Value Reference Range Comments CO2 (test code = CO2) 29.0000 mmol/L 18.0000-33.0000 AST (SGOT) (test code = AST (SGOT)) 12.0000 11.0000-37.0 000 ALT (SGPT) (test code = ALT (SGPT)) 12.0000 10.0000-47.0 000 Alkaline Phosphatase (test code = Alkaline 61.0000 42.00 00-141.0000 Phosphatase) Sodium (test code = Sodium) 138.0000 mmol/L 128.0000-145.0000 Potassium (test code = Potassium) 3.6000 mmol/L 3.6000-5.1000 Chloride (test code = Chloride) 104.0000 mmol/L 96.0000-108.0000 eGFR -Turkish (test code = eGFR 121.0000 60.0000- 200.0000 -Turkish) eGFR Lar-Lnznvoa-Okkfmqxj (test code = 100.0000 60.0000-2 00.0000 eGFR Dtv-Cdlyloh-Eegtpjcf) Cr Clearance (Est) (test code = Cr 96.5600 75.0000-115.0 000 Clearance (Est)) Glucose (test code = Glucose) 375.0000 mg/dL 70.0000-118.0000 Albumin (test code = Albumin) 4.1000 g/dL 3.5000-5.5000 Protein, Total (test code = Protein, 6.8000 g/dL 6.4000-8.10 00 Total) Calcium (test code = Calcium) 9.2600 mg/dL 8.0000-10.3000 Creatinine (test code = Creatinine) 0.6000 mg/dL 0.5000-1.200 0 Bilirubin, Total (test code = Bilirubin, 0.6000 mg/dL 0.0000- 1.6000 Total) BUN (test code = BUN) 19.0000 mg/dL 7.0000-22.0000 [id number] 09:45:00 Test Item Value Reference Range Comments Creatinine (test code = Creatinine) 0.6000 mg/dL 0.5000-1.200 0 Cr Clearance (Est) (test code = Cr 96.5600 75.0000-115.0 000 Clearance (Est)) Glucose (test code = Glucose) 375.0000 mg/dL 70.0000-118.0000 BUN (test code = BUN) 19.0000 mg/dL 7.0000-22.0000 Sodium (test code = Sodium) 138.0000 mmol/L 128.0000-145.0000 Potassium (test code = Potassium) 3.6000 mmol/L 3.6000-5.1000 Chloride (test code = Chloride) 104.0000 mmol/L 96.0000-108.0000 CO2 (test code = CO2) 29.0000 mmol/L 18.0000-33.0000 Calcium (test code = Calcium) 9.2600 mg/dL 8.0000-10.3000 Alkaline Phosphatase (test code = Alkaline 61.0000 42.00 00-141.0000 Phosphatase) ALT (SGPT) (test code = ALT (SGPT)) 12.0000 10.0000-47.0 000 AST (SGOT) (test code = AST (SGOT)) 12.0000 11.0000-37.0 000 Bilirubin, Total (test code = Bilirubin, 0.6000 mg/dL 0.0000- 1.6000 Total) Albumin (test code = Albumin) 4.1000 g/dL 3.5000-5.5000 Protein, Total (test code = Protein, 6.8000 g/dL 6.4000-8.10 00 Total) eGFR -Turkish (test code = eGFR 121.0000 60.0000- 200.0000 -Turkish) eGFR Noy-Ktwnozk-Iquutldy (test code = 100.0000 60.0000-2 00.0000 eGFR Rwa-Rxyxcve-Lprcmkfs) [id number] 12:47:00 Test Item Value Reference Range Comments Creatinine (test code = Creatinine) 0.8500 mg/dL 0.5700-1.000 0 Cr Clearance (Est) (test code = Cr 68.5300 75.0000-115.0 000 Clearance (Est)) Glucose (test code = Glucose) 494.0000 mg/dL 65.0000-99.0000 BUN (test code = BUN) 19.0000 mg/dL 8.0000-27.0000 eGFR Ile-Jntydqm-Sptkmmdp (test code = 72.0000 eGFR Vmu-Djmkorn-Cqiqyrub) eGFR -Turkish (test code = eGFR 83.0000 -Turkish) BUN/Creat Ratio (test code = BUN/Creat 22.0000 12.0000-2 8.0000 Ratio) Sodium (test code = Sodium) 141.0000 mmol/L 134.0000-144.0000 Potassium (test code = Potassium) 4.6000 mmol/L 3.5000-5.2000 Chloride (test code = Chloride) 100.0000 mmol/L 96.0000-106.0000 CO2 (test code = CO2) 25.0000 mmol/L 20.0000-29.0000 Calcium (test code = Calcium) 9.8000 mg/dL 8.7000-10.3000 Protein, Total (test code = Protein, 7.2000 g/dL 6.0000-8.50 00 Total) Albumin (test code = Albumin) 4.5000 g/dL 3.8000-4.8000 Globulin (test code = Globulin) 2.7000 g/dL 1.5000-4.5000 A/G Ratio (test code = A/G Ratio) 1.7000 1.2000-2.2000 Bilirubin, Total (test code = Bilirubin, 1.5000 mg/dL 0.0000- 1.2000 Total) Alkaline Phosphatase (test code = 86.0000 39.0000-117.00 00 Alkaline Phosphatase) AST (SGOT) (test code = AST (SGOT)) 11.0000 0.0000-40.00 00 ALT (SGPT) (test code = ALT (SGPT)) 12.0000 0.0000-32.00 00 Iron, Total (test code = Iron, Total) 108.0000 27.0000-13 9.0000 TIBC (test code = TIBC) 318.0000 250.0000-450.0000 UIBC (test code = UIBC) 210.0000 118.0000-369.0000 % Iron Saturation (test code = % Iron 34.0000 % 15.0000-55 .0000 Saturation) Vitamin B12 (test code = Vitamin B12) 616.0000 pg/mL 232.0000-1 245.0000 Folate (test code = Folate) 11.7000 ng/mL Ferritin (test code = Ferritin) 570.0000 ng/mL 15.0000-150.0000 Iron, [id number] 12:47:00 Test Item Value Reference Range Comments Iron, Total (test code = Iron, Total) 108.0000 27.0000-13 9.0000 TIBC (test code = TIBC) 318.0000 250.0000-450.0000 UIBC (test code = UIBC) 210.0000 118.0000-369.0000 BUN (test code = BUN) 19.0000 mg/dL 8.0000-27.0000 Bilirubin, Total (test code = Bilirubin, 1.5000 mg/dL 0.0000- 1.2000 Total) Creatinine (test code = Creatinine) 0.8500 mg/dL 0.5700-1.000 0 Protein, Total (test code = Protein, 7.2000 g/dL 6.0000-8.50 00 Total) Albumin (test code = Albumin) 4.5000 g/dL 3.8000-4.8000 Calcium (test code = Calcium) 9.8000 mg/dL 8.7000-10.3000 Glucose (test code = Glucose) 494.0000 mg/dL 65.0000-99.0000 Globulin (test code = Globulin) 2.7000 g/dL 1.5000-4.5000 Vitamin B12 (test code = Vitamin B12) 616.0000 pg/mL 232.0000-1 245.0000 Cr Clearance (Est) (test code = Cr 68.5300 75.0000-115.0 000 Clearance (Est)) Ferritin (test code = Ferritin) 570.0000 ng/mL 15.0000-150.0000 Folate (test code = Folate) 11.7000 ng/mL Potassium (test code = Potassium) 4.6000 mmol/L 3.5000-5.2000 Sodium (test code = Sodium) 141.0000 mmol/L 134.0000-144.0000 % Iron Saturation (test code = % Iron 34.0000 % 15.0000-55 .0000 Saturation) Alkaline Phosphatase (test code = 86.0000 39.0000-117.00 00 Alkaline Phosphatase) ALT (SGPT) (test code = ALT (SGPT)) 12.0000 0.0000-32.00 00 AST (SGOT) (test code = AST (SGOT)) 11.0000 0.0000-40.00 00 Chloride (test code = Chloride) 100.0000 mmol/L 96.0000-106.0000 CO2 (test code = CO2) 25.0000 mmol/L 20.0000-29.0000 eGFR -Turkish (test code = eGFR 83.0000 -Turkish) eGFR Tim-Yunivok-Qktjpruc (test code = 72.0000 eGFR Zys-Rwziwkd-Npnydimg) A/G Ratio (test code = A/G Ratio) 1.7000 1.2000-2.2000 BUN/Creat Ratio (test code = BUN/Creat 22.0000 12.0000-2 8.0000 Ratio) [id number] 11:08:00 Test Item Value Reference Range Comments RDW (test code = RDW) 14.7000 11.0000-18.0000 HCT (test code = HCT) 33.0000 % 34.0000-44.0000 MID% (test code = MID%) 6.6000 % 1.2000-11.2000 Lymphocytes % (test code = Lymphocytes %) 22.4000 % 22.400 0-43.6000 Neutrophils % (test code = Neutrophils %) 71.0000 % 48.900 0-69.9000 MCH (test code = MCH) 31.2000 pg 27.0000-34.0000 MPV (test code = MPV) 9.0000 fL 6.8000-10.6000 MCV (test code = MCV) 99.0000 fL 80.0000-94.0000 MCHC (test code = MCHC) 31.5000 g/dL 31.5000-36.0000 HGB (test code = HGB) 10.4000 g/dL 11.2000-18.0000 Lymphocytes (test code = Lymphocytes) 2.5000 1.2000-3.2 000 MID (test code = MID) 0.7000 0.1000-1.1000 Neutrophils (test code = Neutrophils) 7.9000 1.5000-6.7 000 PLT (test code = PLT) 339.0000 140.0000-440.0000 WBC (test code = WBC) 11.1000 4.0000-10.0000 RBC (test code = RBC) 3.3300 3.7000-4.9000 [id number] 11:08:00 Test Item Value Reference Range Comments WBC (test code = WBC) 11.1000 4.0000-10.0000 Lymphocytes % (test code = Lymphocytes %) 22.4000 % 22.400 0-43.6000 MID% (test code = MID%) 6.6000 % 1.2000-11.2000 Neutrophils % (test code = Neutrophils %) 71.0000 % 48.900 0-69.9000 Lymphocytes (test code = Lymphocytes) 2.5000 1.2000-3.2 000 MID (test code = MID) 0.7000 0.1000-1.1000 Neutrophils (test code = Neutrophils) 7.9000 1.5000-6.7 000 RBC (test code = RBC) 3.3300 3.7000-4.9000 HGB (test code = HGB) 10.4000 g/dL 11.2000-18.0000 HCT (test code = HCT) 33.0000 % 34.0000-44.0000 MCV (test code = MCV) 99.0000 fL 80.0000-94.0000 MCH (test code = MCH) 31.2000 pg 27.0000-34.0000 MCHC (test code = MCHC) 31.5000 g/dL 31.5000-36.0000 RDW (test code = RDW) 14.7000 11.0000-18.0000 PLT (test code = PLT) 339.0000 140.0000-440.0000 MPV (test code = MPV) 9.0000 fL 6.8000-10.6000 Encounters Start End Encounter Admission Attending Care Care Encounter Date/Time Date/Time Type Type Clinicians Facility Department ID 2020-01-22 2020-01-22 Outpatient Garry Brown [facility] rn [id number] 00:00:00 00:00:00 [facility] [place] 2020-01-21 2020-01-21 Garry Bermeo [facility] [id number] 00:00[facility] [place] 2020-01-16 2020-01-16 Outpatient Obedanna Garry Yonis rn [id number] 00:00:00 00:00:00 [facility] [place] 2020-01-15 2020-01-15 Outpatient Rudolphbharat Garry Jerie rn [id number] 00:00:00 00:00:00 [facility] [place] 2020-01-14 2020-01-14 ObedannaRudolphbharat Jerilou [facility] [id number] 00:00:00 00:00:00 Joaquin [facility] [place] 2020-01-09 2020-01-09 Outpatient Obedanna Jerilou [facility] rn [id number] 00:00:00 00:00:00 [facility] [place] 2020-01-08 2020-01-08 Outpatient Jeirlou Wilcoxlou n [id number] 00:00:00 00:00:00 [facility] On[facility]cology [facility] [place] 2020-01-02 2020-01-02 Outpatient Rudolphbharat Garry Yonis rn [id number] 00:00:00 00:00:00 [facility] [place] 2019-12-31 2019-12-31 Outpatient Garry Wilcoxlou n [id number] 00:00:00 00:00:00 [facility] On[facility] [place] 2019-12-26 2019-12-26 Outpatient Rudolphbharat Garry Yonis rn [id number] 00:00:00 00:00:00 [facility] On[facility] [place] 2019-12-25 2019-12-25 Outpatient Obedanna Garry Yonis rn [id number] 00:00:00 00:00:00 [facility] On[facility] [place] 2019-12-24 2019-12-24 Ramy Stephanie [facility] [id number] 00:00:00 00:00:00 Kathi [facility] On[facility] [place] 2019-12-17 2019-12-17 Outpatient Garry Castañeda n [id number] 00:00:00 00:00:00 [facility] On[facility] [place] 2019-12-09 2019-12-09 Outpatient Garry Jerilou n [id number] 00:00:00 00:00:00 [facility] On[facility] [place] 2019-12-05 2019-12-05 Outpatient Garry Brown rn [id number] 00:00:00 00:00:00 [facility] On[facility] [place] 2019-12-04 2019-12-04 Outpatient ObedannaGarry rn [id number] 00:00:00 00:00:00 [facility] [place] 2019-12-03 2019-12-03 Garry Brown [id number] 00:00:00 00:00:00 [facility] On[facility] [place] 2019-11-20 2019-11-20 Outpatient Garry Castañeda n [id number] 00:00:00 00:00:00 [facility] Oncology Oncology [facility] 2019-11-15 2019-11-15 Outpatient Garry Castañeda n [id number] 00:00:00 00:00:00 [facility] Oncology Oncology [facility] 2019-11-14 2019-11-14 Outpatient Garry Brown rn [id number] 00:00:00 00:00:00 [facility] [place] 2019-11-13 2019-11-13 Outpatient ObedannaGarry rn [id number] 00:00:00 00:00:00 [facility] Oncology Oncology [facility] 2019-11-12 2019-11-12 Garry Mccann 2 [id number] 00:00:00 00:00:00 [facility] Oncology Oncology [facility] 2019-11-06 2019-11-06 Outpatient Garry Brown rn [id number] 00:00:00 00:00:00 [facility] On[facility] [place] 2019-11-05 2019-11-05 Outpatient Garry Castañeda n [id number] 00:00:00 00:00:00 [facility] [place] 2019-10-30 2019-10-30 Outpatient Grary Brown rn [id number] 00:00:00 00:00:00 [facility] On[facility] [place] 2019-10-29 2019-10-29 Outpatient Garry Castañeda n [id number] 00:00:00 00:00:00 [facility] Oncology Oncology [facility] 2019-10-24 2019-10-24 Outpatient Garry Browne rn [id number] 00:00:00 00:00:00 [facility] On[facility] [place] 2019-10-23 2019-10-23 Outpatient RudolphGarry nicholson Yonis rn [id number] 00:00:00 00:00:00 [facility] On[facility] [place] 2019-10-22 2019-10-22 Outpatient RudolphGarry nicholson Yonis rn [id number] 00:00:00 00:00:00 [facility] [place] 2019-10-16 2019-10-16 Stephanie Mccann Jerilou Escobar [id number] 00:00:00 00:00:00 Kathi [facility] On[facility] [place] 2019-10-08 2019-10-08 Outpatient Garry Wilcoxlou n [id number] 00:00:00 00:00:00 [facility] On[facility] [place] 2019-10-01 2019-10-01 Outpatient Garry Wilcoxlou n [id number] 00:00:00 00:00:00 [facility] Oncology Oncology [facility] 2019-09-23 2019-09-23 Outpatient Garry Wilcoxlou n [id number] 00:00:00 00:00:00 [facility] [place] 2019-09-10 2019-09-10 Outpatient Garry Wilcoxlou n [id number] 00:00:00 00:00:00 [facility] [place] 2019-09-06 2019-09-06 Stephanie Mccann Jerilou Escobar [id number] 00:00:00 00:00:00 [facility] [place] 2019-08-27 2019-08-27 Outpatient Garry Wilcoxlou n [id number] 00:00:00 00:00:00 [facility] [place] 2019-08-26 2019-08-26 Stephanie Mccann [facility] [id number] 00:00:00 00:00:00 Kathi [facility] Oncology Oncology [facility] 2019-08-22 2019-08-22 Outpatient Garry Wilcoxlou n [id number] 00:00:00 00:00:00 [facility] On[facility] [place] 2019-08-14 2019-08-14 Outpatient Jerilou Jerier n [id number] 00:00:00 00:00:00 [facility] On[facility] [place] 2019-08-09 2019-08-09 Outpatient [facility] n [id number] 00:00:00 00:00:00 n [facility] On[facility] Oncology [facility] 2019-06-03 2019-06-03 Outpatient [facility] n [id number] 00:00:00 00:00:00 n [facility] Medical Oncology Oncology [facility] 2019-05-31 2019-05-31 Outpatient [facility] n [id number] 00:00:00 00:00:00 [facility] Oncology Oncology [facility] 2019-05-27 2019-05-27 Outpatient [facility] n [id number] 00:00:00 00:00:00 [facility] Oncology Oncology [facility] Social History Smoking Status Start Date Stop Date Yes - but quit (former) 2020-01-21 00:00:00 2020-01-21 00:00 :00 Social History Observation Description Sex Female Vital Signs Vital Name Observation Time Observation Value Comments BMI 2020-01-21 14:03:40 25.7500 BP regan 2020-01-21 14:03:40 81.0000 mm[Hg] Bdy height 2020-01-21 14:03:40 64.0000 [in_i] SaO2% BldA PulseOx 2020-01-21 14:03:40 98.0000 % Heart rate 2020-01-21 14:03:40 81.0000 /min Resp rate 2020-01-21 14:03:40 16.0000 /min BP sys 2020-01-21 14:03:40 135.0000 mm[Hg] Body temperature 2020-01-21 14:03:40 97.9000 [degF] Weight 2020-01-21 14:03:40 150.0000 [lb_av] BMI 2020-01-14 14:14:13 26.3000 BP regan 2020-01-14 14:14:13 73.0000 mm[Hg] Bdy height 2020-01-14 14:14:13 64.0000 [in_i] SaO2% BldA PulseOx 2020-01-14 14:14:13 98.0000 % Heart rate 2020-01-14 14:14:13 93.0000 /min Resp rate 2020-01-14 14:14:13 18.0000 /min BP sys 2020-01-14 14:14:13 160.0000 mm[Hg] Body temperature 2020-01-14 14:14:13 97.3000 [degF] Weight 2020-01-14 14:14:13 153.2000 [lb_av] Bdy height 2020-01-09 12:12:03 64.0000 [in_i] Body temperature 2020-01-09 12:12:03 97.3000 [degF] Bdy height 2020-01-02 12:10:37 64.0000 [in_i] Body temperature 2020-01-02 12:10:37 98.2000 [degF] BMI 2019-12-24 14:23:18 26.1600 BP regan 2019-12-24 14:23:18 87.0000 mm[Hg] Bdy height 2019-12-24 14:23:18 64.0000 [in_i] SaO2% BldA PulseOx 2019-12-24 14:23:18 98.0000 % Heart rate 2019-12-24 14:23:18 73.0000 /min Resp rate 2019-12-24 14:23:18 18.0000 /min BP sys 2019-12-24 14:23:18 168.0000 mm[Hg] Body temperature 2019-12-24 14:23:18 98.2000 [degF] Weight 2019-12-24 14:23:18 152.4000 [lb_av] BMI 2019-12-03 13:48:53 25.6400 BP regan 2019-12-03 13:48:53 74.0000 mm[Hg] Bdy height 2019-12-03 13:48:53 64.0000 [in_i] SaO2% BldA PulseOx 2019-12-03 13:48:53 98.0000 % Heart rate 2019-12-03 13:48:53 102.0000 /min Resp rate 2019-12-03 13:48:53 18.0000 /min BP sys 2019-12-03 13:48:53 143.0000 mm[Hg] Body temperature 2019-12-03 13:48:53 97.2000 [degF] Weight 2019-12-03 13:48:53 149.4000 [lb_av] BMI 2019-11-12 13:39:23 25.0300 BP regan 2019-11-12 13:39:23 76.0000 mm[Hg] Bdy height 2019-11-12 13:39:23 64.0000 [in_i] SaO2% BldA PulseOx 2019-11-12 13:39:23 97.0000 % Heart rate 2019-11-12 13:39:23 90.0000 /min Resp rate 2019-11-12 13:39:23 20.0000 /min BP sys 2019-11-12 13:39:23 145.0000 mm[Hg] Body temperature 2019-11-12 13:39:23 97.5000 [degF] Weight 2019-11-12 13:39:23 145.8000 [lb_av] Bdy height 2019-11-06 14:27:08 64.0000 [in_i] Body temperature 2019-11-06 14:27:08 97.4000 [degF] Bdy height 2019-10-30 15:28:57 64.0000 [in_i] Body temperature 2019-10-30 15:28:57 97.2000 [degF] BMI 2019-10-22 09:59:52 25.1000 BP regan 2019-10-22 09:59:52 73.0000 mm[Hg] Bdy height 2019-10-22 09:59:52 64.0000 [in_i] SaO2% BldA PulseOx 2019-10-22 09:59:52 97.0000 % Heart rate 2019-10-22 09:59:52 78.0000 /min Resp rate 2019-10-22 09:59:52 16.0000 /min BP sys 2019-10-22 09:59:52 167.0000 mm[Hg] Body temperature 2019-10-22 09:59:52 98.1000 [degF] Weight 2019-10-22 09:59:52 146.2000 [lb_av] BMI 2019-10-16 13:05:07 25.1600 BP regan 2019-10-16 13:05:07 89.0000 mm[Hg] Bdy height 2019-10-16 13:05:07 64.0000 [in_i] SaO2% BldA PulseOx 2019-10-16 13:05:07 97.0000 % Heart rate 2019-10-16 13:05:07 68.0000 /min Resp rate 2019-10-16 13:05:07 20.0000 /min BP sys 2019-10-16 13:05:07 185.0000 mm[Hg] Body temperature 2019-10-16 13:05:07 97.2000 [degF] Weight 2019-10-16 13:05:07 146.6000 [lb_av] BMI 2019-09-06 11:31:58 25.2300 BP regan 2019-09-06 11:31:58 66.0000 mm[Hg] Bdy height 2019-09-06 11:31:58 64.0000 [in_i] Heart rate 2019-09-06 11:31:58 92.0000 /min Resp rate 2019-09-06 11:31:58 16.0000 /min BP sys 2019-09-06 11:31:58 142.0000 mm[Hg] Body temperature 2019-09-06 11:31:58 97.2000 [degF] Weight 2019-09-06 11:31:58 147.0000 [lb_av] BMI 2019-08-26 10:19:16 25.2300 BP regan 2019-08-26 10:19:16 87.0000 mm[Hg] Bdy height 2019-08-26 10:19:16 64.0000 [in_i] Heart rate 2019-08-26 10:19:16 82.0000 /min Resp rate 2019-08-26 10:19:16 16.0000 /min BP sys 2019-08-26 10:19:16 148.0000 mm[Hg] Body temperature 2019-08-26 10:19:16 97.9000 [degF] Weight 2019-08-26 10:19:16 147.0000 [lb_av]
== END 2020-01-22 14:30 | disposition home or self-care (01) ==
LOC: II 08:53 → 5TH 09:00 → II 14:30
PROVIDERS: ATTEND Internal Medicine
DX: Z51.11 Encounter for antineoplastic chemotherapy (principal); C50.411 Malignant neoplasm of upper-outer quadrant of right female breast
CPT/HCPCS: 96413; 96367; 96375; 96417; J9070; J1200; J7050 ×2; S0028; J1100; J1453; J2469; J9171; J1642

== ENCOUNTER 2020-01-23 12:48 | Outpatient (CLI) | payer MEDICARE, OTHER ==
[~2020-01-23 12:48] MED LIST changes: -CYCLOPHOSPHAMIDE IV PRN; -DEXAMETHASONE SOD PHOSPHATE 20 MG in NORMAL SALINE 50 ML IV PRN; -DIPHENHYDRAMINE 50 MG in NS 50 ML IV PRN; -DOCETAXEL IV PRN; -FAMOTIDINE 20 MG in NS 50 ML IV PRN; -FOSAPREPITANT 150 MG in NS 150 ML IV PRN; -NORMAL SALINE 500 ML @ KVO IV PRN; -NORMAL SALINE IV PRN; -PALONOSETRON 0.25 MG/5 ML VIAL IV PRN; +PEGFILGRASTIM-CBQV 6 MG/0.6 ML SYRINGE SUBCUT PRN
[2020-01-23 13:01] VITALS: BP 159/64
--- OUTSIDE RECORDS SUMMARY | 2020-01-24 15:29 | XMS REPORT ---
:1950 Author Organization [facility] Address [facility] [address] [place] [id number] Care Team Providers Name Role Phone Stephanie [...] Heparin 2019-03 2020- Yes 5mL Sodium Lock 0 1015 Flush 00:00: 00:00 00 :00 Udenyca 2019-0 2020- No 6mg 10-23 00:00: 00:00 00 :00 Cytoxan 2020-0 Yes 1000mg 8- 00:00: 00 Dexamethaso 2020-0 Yes 20mg ne Sodium 12 Phosphate 00:00: 00 DiphenhydrA 2019-0 Yes 50mg MINE HCl 10-22 00:00: 00 Docetaxel 2020-0 Yes 130mg 8-12 00:00: 00 Famotidine 2020-0 Yes 20mg 8-12 00:00: 00 Hydration 2020-0 Yes 500mL 500mL NS 10-22 00:00: 00 Fosaprepita 2020-0 2020- No 150mg nt 10-2215 Dimeglumine 00:00: 00:00 00 :00 Palonosetro 2020-0 2020- No .25mg n HCl 10-22 10 00:00: 00:00 00 :00 Promethazin 2020-0 Yes [...] (test code = Ferritin) 233.0000 ng/mL 15.0000-150.0000 [id number] 13:45:00 Test Item Value Reference Range Comments [...] (test code = MPV) 8.1000 fL 6.8000-10.6000 [id number] 13:45:00 Test Item Value Reference Range Comments [...] Protein, 6.8000 g/dL 6.4000-8.10 00 Total) eGFR -[place] (test code = eGFR 60.0000 60.0000- 200.0000 -[place]) eGFR Deq-Duikvym-Dzpruobj (test code = 50.0000 60.0000-2 00.0000 eGFR Pel-Mwvmarz-Hfeevxru) [id number] 13:58:00 Test Item Value Reference Range Comments [...] (test code = MPV) 8.5000 fL 6.8000-10.6000 [id number] 13:58:00 Test Item Value Reference Range Comments [...] Protein, 6.3000 g/dL 6.4000-8.10 00 Total) eGFR -[place] (test code = eGFR 121.0000 60.0000- 200.0000 -[place]) eGFR Kxk-Ixwpaky-Ulekxbdg (test code = 100.0000 60.0000-2 00.0000 eGFR Gwb-Wkmjapk-Agriqzrn) [id number] 12:08:00 Test Item Value Reference Range Comments [...] (test code = MPV) 8.7000 fL 6.8000-10.6000 [id number] 12:03:00 Test Item Value Reference Range Comments [...] (test code = Neutrophils) 21.3000 1.5000-6.7 000 [id number] 12:03:00 Test Item Value Reference Range Comments [...] (test code = MPV) 9.1000 fL 6.8000-10.6000 [id number] 14:03:00 Test Item Value Reference Range Comments [...] (test code = MPV) 7.9000 fL 6.8000-10.6000 [id number] 14:03:00 Test Item Value Reference Range Comments [...] Protein, 6.4000 g/dL 6.4000-8.10 00 Total) eGFR -[place] (test code = eGFR 121.0000 60.0000- 200.0000 -[place]) eGFR Gmw-Vejiiwf-Hywaxpfr (test code = 100.0000 60.0000-2 00.0000 eGFR Igw-Umgkqix-Mifmjsth) Bilirubin, [id number] 14:03:00 Test Item Value Reference Range Comments [...] Protein, 6.4000 g/dL 6.4000-8.10 00 Total) eGFR -[place] (test code = eGFR 121.0000 60.0000- 200.0000 -[place]) eGFR Yrf-Jnzweuz-Aoxkmmzb (test code = 100.0000 60.0000-2 00.0000 eGFR Clu-Fimgszq-Rlicsixb) Potassium (test code = Potassium) 3.9000 mmol/L [...] code = Alkaline 55.0000 42.00 00-141.0000 Phosphatase) [id number] 14:03:00 Test Item Value Reference Range Comments [...] RDW (test code = RDW) 16.3000 11.0000-18.0000 [id number] 13:28:00 Test Item Value Reference Range Comments [...] (test code = MPV) 8.3000 fL 6.8000-10.6000 [id number] 13:28:00 Test Item Value Reference Range Comments [...] Protein, 7.1000 g/dL 6.4000-8.10 00 Total) eGFR -[place] (test code = eGFR 121.0000 60.0000- 200.0000 -[place]) eGFR Ehy-Ywpqoci-Iuvkparz (test code = 100.0000 60.0000-2 00.0000 eGFR Lxo-Blvleyl-Robbqkgu) [id number] 13:28:00 Test Item Value Reference Range Comments [...] code = Neutrophils) 6.9000 1.5000-6.7 000 Alkaline [id number] 13:28:00 Test Item Value Reference Range Comments [...] Cr 97.3400 75.0000-115.0 000 Clearance (Est)) eGFR Znr-Pjpffgd-Ikhfunvb (test code = 100.0000 60.0000-2 00.0000 eGFR Gur-Uvciwwh-Wlzuwgua) Potassium (test code = Potassium) 3.7000 mmol/L 3.6000-5.1000 Sodium (test code = Sodium) 141.0000 mmol/L 128.0000-145.0000 eGFR -[place] (test code = eGFR 121.0000 60.0000- 200.0000 -[place]) Glucose (test code = Glucose) 217.0000 mg/dL [...] = BUN) 23.0000 mg/dL 7.0000-22.0000 Occult Blood [id number] 14:21:24 Test Item Value Reference Range Comments Occult Blood #1 (test code = Occult Blood #1) positive Occult Blood #2 (test code = Occult Blood #2) positive Occult Blood #3 (test code = Occult Blood #3) positive Iron, [id number] 14:57:00 Test Item Value Reference Range Comments Iron, Total (test code = Iron, Total) 38.0000 27.0000-13 9.0000 TIBC (test code = TIBC) 237.0000 250.0000-450.0000 UIBC (test code = UIBC) 199.0000 118.0000-369.0000 % Iron Saturation (test code = % Iron 16.0000 % 15.0000-55 .0000 Saturation) Ferritin (test code = Ferritin) 544.0000 ng/mL 15.0000-150.0000 [id number] 14:57:00 Test Item Value Reference Range Comments UIBC (test code = UIBC) 199.0000 118.0000-369.0000 Iron, Total (test code = Iron, Total) 38.0000 27.0000-13 9.0000 TIBC (test code = TIBC) 237.0000 250.0000-450.0000 Ferritin (test code = Ferritin) 544.0000 ng/mL 15.0000-150.0000 % Iron Saturation (test code = % Iron 16.0000 % 15.0000-55 .0000 Saturation) [id number] 13:28:00 Test Item Value Reference Range Comments [...] (test code = MPV) 8.6000 fL 6.8000-10.6000 [id number] 13:28:00 Test Item Value Reference Range Comments [...] Protein, 6.9000 g/dL 6.4000-8.10 00 Total) eGFR -[place] (test code = eGFR 121.0000 60.0000- 200.0000 -[place]) eGFR Ilf-Syqdwew-Iuvrvesw (test code = 100.0000 60.0000-2 00.0000 eGFR Oce-Jmvoyew-Lzceuyep) [id number] 13:28:00 Test Item Value Reference Range [...] (test code = PLT) 511.0000 140.0000-440.0000 Alkaline [id number] 13:28:00 Test Item Value Reference Range Comments Alkaline Phosphatase (test code = Alkaline 66.0000 42.00 00-141.0000 Phosphatase) AST (SGOT) (test code = AST (SGOT)) 10.0000 11.0000-37.0 000 ALT (SGPT) (test code = ALT (SGPT)) 10.0000 10.0000-47.0 000 CO2 (test code = CO2) 27.0000 mmol/L 18.0000-33.0000 Cr Clearance (Est) (test code = Cr 94.9900 75.0000-115.0 000 Clearance (Est)) eGFR -[place] (test code = eGFR 121.0000 60.0000- 200.0000 -[place]) eGFR Dju-Envtedi-Fxsayhrz (test code = 100.0000 60.0000-2 00.0000 eGFR Isj-Rvnykke-Twbqjxsg) Chloride (test code = Chloride) 103.0000 mmol/L [...] (test code = Glucose) 138.0000 mg/dL 70.0000-118.0000 [id number] 14:03:00 Test Item Value Reference Range Comments [...] (test code = MPV) 9.6000 fL 6.8000-10.6000 [id number] 14:03:00 Test Item Value Reference Range Comments [...] PLT (test code = PLT) 208.0000 140.0000-440.0000 [id number] 15:04:00 Test Item Value Reference Range Comments [...] (test code = MPV) 10.0000 fL 6.8000-10.6000 [id number] 09:46:00 Test Item Value Reference Range Comments [...] RDW (test code = RDW) 14.7000 11.0000-18.0000 [id number] 09:46:00 Test Item Value Reference Range Comments [...] (test code = MPV) 9.3000 fL 6.8000-10.6000 [id number] 09:45:00 Test Item Value Reference Range Comments [...] code = Chloride) 104.0000 mmol/L 96.0000-108.0000 eGFR -[place] (test code = eGFR 121.0000 60.0000- 200.0000 -[place]) eGFR Yab-Iolazqd-Bsbolhdz (test code = 100.0000 60.0000-2 00.0000 eGFR Ktb-Qybkmvt-Jznxdvmx) Cr Clearance (Est) (test code = Cr [...] (test code = BUN) 19.0000 mg/dL 7.0000-22.0000 [id number] 09:45:00 Test Item Value Reference Range Comments [...] Protein, 6.8000 g/dL 6.4000-8.10 00 Total) eGFR -[place] (test code = eGFR 121.0000 60.0000- 200.0000 -[place]) eGFR Ayp-Tdlaxkb-Oezafrgc (test code = 100.0000 60.0000-2 00.0000 eGFR Ygg-Fuefptu-Kuzlkukf) Iron, [id number] 12:47:00 Test Item Value Reference Range Comments [...] code = CO2) 25.0000 mmol/L 20.0000-29.0000 eGFR -[place] (test code = eGFR 83.0000 -[place]) eGFR Jya-Ffcdybw-Ossdnque (test code = 72.0000 eGFR Gae-Lxmhuth-Pbddvqeh) A/G Ratio (test code = A/G Ratio) 1.7000 1.2000-2.2000 BUN/Creat Ratio (test code = BUN/Creat 22.0000 12.0000-2 8.0000 Ratio) [id number] 12:47:00 Test Item Value Reference Range Comments Creatinine (test code = Creatinine) 0.8500 mg/dL 0.5700-1.000 0 Cr Clearance (Est) (test code = Cr 68.5300 75.0000-115.0 000 Clearance (Est)) Glucose (test code = Glucose) 494.0000 mg/dL 65.0000-99.0000 BUN (test code = BUN) 19.0000 mg/dL 8.0000-27.0000 eGFR Mdy-Fsxplbi-Owehenng (test code = 72.0000 eGFR Iqh-Xaziqqs-Bchtwxav) eGFR -[place] (test code = eGFR 83.0000 -[place]) BUN/Creat Ratio (test code = BUN/Creat 22.0000 [...] (test code = Ferritin) 570.0000 ng/mL 15.0000-150.0000 [id number] 11:08:00 Test Item Value Reference Range Comments [...] fL 80.0000-94.0000 MCH (test code = MCH) 31.1999 pg 27.0000-34.0000 MCHC (test code = MCHC) 31.5000 g/dL 31.5000-36.0000 RDW (test code = RDW) 14.7000 11.0000-18.0000 PLT (test code = PLT) 339.0000 140.0000-440.0000 MPV (test code = MPV) 9.0000 fL 6.8000-10.6000 [id number] 11:08:00 Test Item Value Reference Range Comments RDW (test code = RDW) 14.7000 11.0000-18.0000 HCT (test code = HCT) 33.0000 % 34.0000-44.0000 MID% (test code = MID%) 6.6000 % 1.2000-11.2000 Lymphocytes % (test code = Lymphocytes %) 22.4000 % 22.400 0-43.6000 Neutrophils % (test code = Neutrophils %) 71.0000 % 48.900 0-69.9000 MCH (test code = MCH) 31.1999 pg 27.0000-34.0000 MPV (test code = MPV) [...] RBC (test code = RBC) 3.3300 3.7000-4.9000 Encounters Start End Encounter Admission Attending Care Care Encounter Date/Time Date/Time Type Type Clinicians Facility Department ID 2020-01-23 2020-01-23 Outpatient Garry Brown rn [id number] 00:00:00 00:00:00 [facility] Oncology Oncology Center Center 2020-01-22 2020-01-22 Outpatient Garry Brown [facility] [id number] 00:00:00 00:00:00 [facility] [place] 2020-01-21 2020-01-21 Elvie Jerilou [facility] [id number] 00:00[facility] [place] 2020-01-16 2020-01-16 Outpatient Rudolphbharat Garry Jerie rn [id number] 00:00:00 00:00:00 [facility] On[facility] Oncology [facility] [place] 2020-01-15 2020-01-15 Outpatient Rudolphbharat Garry Yonis rn [id number] 00:00:00 00:00:00 [facility] [place] 2020-01-14 2020-01-14 Stephanie Brown Jerilou [facility] [id number] 00:00:00 00:00:00 Dr. Nuñez [facility] [place] 2020-01-09 2020-01-09 Outpatient Obedanna Jerilou Somers rn [id number] 00:00:00 00:00:00 [facility] [place] 2020-01-08 2020-01-08 Outpatient Garry Wilcoxlou n [id number] 00:00:00 00:00:[address] [facility] Oncology [facility] [place] 2020-01-02 2020-01-02 Outpatient Obedanna Garry Yonis rn [id number] 00:00:00 00:00:00 [facility] Oncology [facility] [place] 2019-12-31 2019-12-31 Outpatient Garry Wilcoxlou n [id number] 00:00:00 00:00:[address] [facility]cology [facility] [place] 2019-12-26 2019-12-26 Outpatient Obedanna Jerilou Somers rn [id number] 00:00:00 00:00:00 [facility] [place] 2019-12-25 2019-12-25 Outpatient Obedanna Jerilou Wilcoxe rn [id number] 00:00:00 00:00:00 [facility] [place] 2019-12-24 2019-12-24 Obed Mccannanna Jerilou [facility] [id number] 00:00:00 00:00:00 Kathi [facility] [place] 2019-12-17 2019-12-17 Outpatient Jerilou Garry n [id number] 00:00:00 00:00:[address] [facility] [place] 2019-12-09 2019-12-09 Outpatient Jerilou Jerilou n [id number] 00:00:00 00:00:[address] [facility] [place] 2019-12-05 2019-12-05 Outpatient Rudolphbharat Jerilou Somers rn [id number] 00:00:00 00:00:00 [facility] Oncology Oncology [facility] 2019-12-04 2019-12-04 Outpatient ObedannaGarry rn [id number] 00:00:00 00:00:00 [facility] Oncology [facility] [place] 2019-12-03 2019-12-03 Garry Brown [facility] [id number] 00:00:00 00:00:00 [facility] Oncology Oncology [facility] 2019-11-20 2019-11-20 Outpatient Garry Castañeda n [id number] 00:00:00 00:00:[address] [facility] Oncology Oncology [facility] 2019-11-15 2019-11-15 Outpatient Garry Castañeda n [id number] 00:00:00 00:00:[address] [facility]cology [facility] [place] 2019-11-14 2019-11-14 Outpatient ObedannaGarrye rn [id number] 00:00:00 00:00:00 [facility] Oncology Oncology [facility] 2019-11-13 2019-11-13 Outpatient Obedanna Jerilou Somers rn [id number] 00:00:00 00:00:00 [facility] Oncology Oncology [facility] 2019-11-12 2019-11-12 Garry Mccann 2 [id number] 00:00:00 00:00:00 [facility] On[facility] Oncology [facility] [place] 2019-11-06 2019-11-06 Outpatient ObedannaGarrye rn [id number] 00:00:00 00:00:00 [facility] Oncology Oncology [facility] 2019-11-05 2019-11-05 Outpatient Garry Castañeda n [id number] 00:00:00 00:00:[address] [facility] Oncology Oncology [facility] 2019-10-30 2019-10-30 Outpatient ObedannaGarrye rn [id number] 00:00:00 00:00:00 [facility] Oncology Oncology [facility] 2019-10-29 2019-10-29 Outpatient Garry Castañeda n [id number] 00:00:00 00:00:[address] [facility] [place] 2019-10-24 2019-10-24 Outpatient RudolphGarry nicholson Yonis rn [id number] 00:00:00 00:00:00 [facility] On[facility] Oncology [facility] [place] 2019-10-23 2019-10-23 Outpatient RudolphGarry nicholson Yonis rn [id number] 00:00:00 00:00:00 [facility] Oncology [facility] [place] 2019-10-22 2019-10-22 Outpatient RudolphGarry nicholson Yonis rn [id number] 00:00:00 00:00:00 [facility] Oncology [facility] [place] 2019-10-16 2019-10-16 Stephanie Mccann [facility] [id number] 00:00:00 00:00:[facility] [place] 2019-10-08 2019-10-08 Outpatient Garry Wilcoxlou n [id number] 00:00:00 00:00:[address] [facility] [place] 2019-10-01 2019-10-01 Outpatient Garry Wilcoxlou n [id number] 00:00:00 00:00:[address] [facility] [place] 2019-09-23 2019-09-23 Outpatient Garry Wilcoxlou n [id number] 00:00:00 00:00:[address] [facility] [place] 2019-09-10 2019-09-10 Outpatient Garry Castañeda n [id number] 00:00:00 00:00:[address] [facility] [place] 2019-09-06 2019-09-06 Stephanie Mccann [facility] [id number] 00:00:00 00:00:00 Kathi [facility] [place] 2019-08-27 2019-08-27 Outpatient Garry Wilcoxer n [id number] 00:00:00 00:00:[address] [facility] [place] 2019-08-26 2019-08-26 Stephanie Mccann [facility] [id number] 00:00:00 00:00:00 [facility] [place] 2019-08-22 2019-08-22 Outpatient Garry Wilcoxlou n [id number] 00:00:00 00:00:00 [facility] Oncology [facility]cology [facility] [place] 2019-08-14 2019-08-14 Outpatient [facility] n [id number] 00:00:00 00:00:00 n [facility] Oncology Oncology [facility] [place] 2019-08-09 2019-08-09 Outpatient [facility] n [id number] 00:00:00 00:00:00 n [facility] Oncology Oncology [facility] [place] 2019-06-03 2019-06-03 Outpatient [facility] n [id number] 00:00:00 00:00:00 n [facility] Medical Oncology Oncology [facility] 2019-05-31 2019-05-31 Outpatient [facility] n [id number] 00:00:00 00:00:00 n [facility] Medical Oncology Oncology [facility] 2019-05-27 2019-05-27 Outpatient [facility] n [id number] 00:00:00 00:00:[address] [facility] Oncology Oncology [facility] Social History Smoking Status Start Date Stop [...]
== END 2020-01-23 13:30 | disposition home or self-care (01) ==
LOC: II 12:48 → 5TH 12:53 → II 13:30
PROVIDERS: ATTEND Internal Medicine
DX: Z76.89 Persons encountering health services in other specified circumstances (principal); C50.411 Malignant neoplasm of upper-outer quadrant of right female breast
CPT/HCPCS: 96372; Q5111

== ENCOUNTER 2020-01-24 09:51 | Emergency (ER) | payer MEDICARE, OTHER ==
--- NOTE | 2020-01-24 10:05 | ER Document Report ---
ED Medical Screen (RME) - General Chief Complaint: Chest Pain Stated Complaint: DIFFICULTY BREATHING Time Seen by Provider: 01/24/20 10:03 Primary Care Provider: BALBINA GUERRERO PA [Primary Care Provider] - Follow up as needed Mode of Arrival: Wheelchair Information source: Patient Notes: 69-year-old female presents to ED with chest pain and shortness of breath since last night. She states started at the same time last night. She does have a history of high blood pressure diabetes right right breast mastectomy due to breast cancer and she had an abscess removed from her upper right back Monday. This is extremely tender at this time. I did not remove the dressing in the care area but when I went to listen her lung sounds not knowing exactly where it was I touch the area and she about jumped out of the chair. Her lungs are clear at this time sats 100% but she does have chest pain to the mid to left side of the chest. I have greeted and performed a rapid initial assessment of this patient. A comprehensive ED assessment and evaluation of the patient, analysis of test results and completion of medical decision making process will be conducted by an additional ED providers. TRAVEL OUTSIDE OF THE [place] IN LAST 30 DAYS: No - Related Data Allergies/Adverse Reactions: latex Allergy (Severe, Verified 01/24/20 10:00) Swelling of hands and/or feet Penicillins Allergy (Severe, Verified 01/24/20 10:00) Hives clindamycin Adverse Reaction (Verified 01/24/20 10:00) Past Medical History - Social History Chew tobacco use (# tins/day): No Drug Abuse: None - Past Medical History Cardiac Medical History: Reports: Hx Hypertension Denies: Hx Coronary Artery Disease, Hx Heart Attack Pulmonary Medical History: Denies: Hx Asthma, Hx Bronchitis, Hx COPD, Hx Pneumonia Neurological Medical History: Reports: Hx Cerebrovascular Accident - MANY YEARS AGO. Denies: Hx Seizures Musculoskeltal Medical History: Denies Hx Arthritis - Immunizations Hx Diphtheria, Pertussis, Tetanus Vaccination: No Physical Exam - Vital signs Vitals: Temp Pulse Resp BP Pulse Ox 97.9 F 86 18 127/62 H 100 01/24/20 09:56 01/24/20 09:56 01/24/20 09:56 01/24/20 09:56 01/24/20 09:56 Course - Vital Signs Vital signs: Temp Pulse Resp BP Pulse Ox 97.9 F 86 18 127/62 H 100 01/24/20 09:56 01/24/20 09:56 01/24/20 09:56 01/24/20 09:56 01/24/20 09:56 Doctor's Discharge - Discharge Referrals: BALBINA GUERRERO PA [Primary Care Provider] - Follow up as needed
--- NOTE | 2020-01-24 10:51 | RADIOLOGY REPORT (SQ) ---
EXAM DESCRIPTION: CHEST 2 VIEWS IMAGES COMPLETED DATE/TIME: 01/24/2020 10:40 am REASON FOR STUDY: chest pain short of breath COMPARISON: EXAM PARAMETERS: NUMBER OF VIEWS: two views TECHNIQUE: Digital Frontal and Lateral radiographic views of the chest acquired. RADIATION DOSE: NA LIMITATIONS: none FINDINGS: LUNGS AND PLEURA: No opacities, masses or pneumothorax. No pleural effusion. MEDIASTINUM AND HILAR STRUCTURES: No masses or contour abnormalities. HEART AND VASCULAR STRUCTURES: Stable. BONES: No acute findings. HARDWARE: [id number] is in place. Catheter tip overlies the innominate vein. Surgical clips over lie the right axilla and right anterior chest wall. OTHER: No other significant finding. IMPRESSION: NO ACUTE RADIOGRAPHIC FINDING IN THE CHEST. TECHNICAL DOCUMENTATION: JOB ID: [id number] 2010 [employer]- All Rights Reserved Reading location - IP/workstation name: [email or web address]
[2020-01-24] MEDS ORDERED: MAG HYDROX/AL HYDROX/SIMETH SUSP 30 ML UDCUP PO ONE ×2 (10:53→12:57)
[2020-01-24] MEDS ORDERED: LIDOCAINE 2% VISCOUS SOLN 15 ML UDCUP PO ONE ×2 (10:53→12:57)
--- NOTE | 2020-01-24 11:21 | ER Document Report ---
Entered by SCOT CHEUNG SCRIBE 01/24/20 1054 Acting as scribe for:JUAN GAYLE MD ED General - General Chief Complaint: Chest Pain Stated Complaint: DIFFICULTY BREATHING Time Seen by Provider: 01/24/20 10:03 Primary Care Provider: BALBINA GUERRERO PA [Primary Care Provider] - Follow up as needed Mode of Arrival: Wheelchair Information source: Patient Notes: This 69-year-old female patient presents to the emergency department today with complaints of upper abdominal pain, chest pain, and shortness of breath which woke her up from sleeping this morning at 3:30 AM. Patient states the pain seemed to radiate from the front to her back. Patient states when the pain began she felt dizzy and it hurts when she breathes. Patient states she ate beets for dinner last night. Patient denies nausea. Patient reports she had her last round of chemotherapy on Monday 2 days ago. She reports it always causes her white blood cell count to go extremely high. TRAVEL OUTSIDE OF THE [place] IN LAST 30 DAYS: No - Related Data Allergies/Adverse Reactions: latex Allergy (Severe, Verified 01/24/20 10:00) Swelling of hands and/or feet Penicillins Allergy (Severe, Verified 01/24/20 10:00) Hives clindamycin Adverse Reaction (Verified 01/24/20 10:00) Past Medical History - General Information source: Patient - Social History Smoking Status: Former Smoker Cigarette use (# per day): No Chew tobacco use (# tins/day): No Drug Abuse: None Lives with: Family Family History: Reviewed & Not Pertinent Patient has homicidal ideation: No - Past Medical History Cardiac Medical History: Reports: Hx Hypertension Neurological Medical History: Reports: Hx Cerebrovascular Accident - MANY YEARS AGO Past Surgical History: Reports: Hx Mastectomy - right - Immunizations Hx Diphtheria, Pertussis, Tetanus Vaccination: No Review of Systems - Review of Systems Constitutional: No symptoms reported EENT: No symptoms reported Cardiovascular: See HPI, Chest pain, Dizziness Respiratory: See HPI, Hurts to breathe, Short of breath Gastrointestinal: See HPI, Abdominal pain. denies: Nausea Genitourinary: No symptoms reported Female Genitourinary: No symptoms reported Musculoskeletal: No symptoms reported Skin: No symptoms reported Hematologic/Lymphatic: No symptoms reported Neurological/Psychological: No symptoms reported -: Yes All other systems reviewed and negative Physical Exam - Vital signs Vitals: Temp Pulse Resp BP Pulse Ox 97.9 F 86 18 127/62 H 100 01/24/20 09:56 01/24/20 09:56 01/24/20 09:56 01/24/20 09:56 01/24/20 09:56 - Notes Notes: Physical Exam: General: Alert, appears well. HEENT: Normocephalic. Atraumatic. PERRL. Extraocular movements intact. Oropharynx clear. Neck: Supple. Non-tender. Respiratory: No respiratory distress. Clear and equal breath sounds bilaterally. No sternal or chest wall tenderness to palpation. Right mastectomy. Cardiovascular: Regular rate and rhythm. Abdominal: Moderate epigastric tenderness to palpation, mild RUQ tenderness to palpation. No distension. Normal Bowel Sounds. Back: Large defect over thoracic spine with bandage consistent with recent surgical procedure of sebaceous cyst. Extremities: Moves all four extremities. Upper extremities: Normal inspection. Normal ROM. Lower extremities: Normal inspection. No edema. Normal ROM. Neurological: Normal cognition. AAOx4. Normal speech. Psychological: Normal affect. Normal Mood. Skin: Warm. Dry. Normal color. Course - Re-evaluation Re-evalutation: 01/24/20 12:59 Patient was reevaluated after she got the GI cocktail. She stated she thought she did feel little bit better. Palpating the epigastric region was much less tender than previously. We will give her an IV dose of Protonix and another GI cocktail and then reevaluate. Her gallbladder ultrasound was negative. Lab work is still pending. 01/24/20 14:46 Patient reports that her epigastric pain is not really any better. Repeat evaluation shows her to continue to be very tender in the epigastrium. Her white blood cell count is 36,400 however patient states this is not unusual right after she gets her chemo. Patient's chemistries show an elevated BUN consistent with some mild dehydration. 01/24/20 19:38 I discussed the patient's case with Dr. Brown. He states the patient was given Neulasta with her chemo and that would be an expected white blood cell count. He also states that occasionally the chemo she got can cause the types of abdominal pain she is complaining of. We will treat her as both GERD and possibly chemo induced pain and follow-up in the office next week. - Vital Signs Vital signs: Temp Pulse Resp BP Pulse Ox 97.9 F 86 18 127/62 H 100 01/24/20 09:56 01/24/20 09:56 01/24/20 09:56 01/24/20 09:56 01/24/20 09:56 - Laboratory Result Diagrams: 01/24/20 12:40 01/24/20 12:40 Laboratory results interpreted by me: 01/24/20 01/24/20 01/24/20 12:40 12:40 14:25 WBC 36.4 H* RBC 2.72 L Hgb 8.2 L Hct 25.4 L RDW 16.6 H Seg Neuts % (Manual) 92 H Band Neutrophils % 1 L Lymphocytes % (Manual) 5 L Monocytes % (Manual) 1 L Abs Neuts (Manual) 33.9 H BUN 22 H POC Glucose Magnesium 2.4 H Ur Leukocyte Esterase SMALL H 01/24/20 15:56 WBC RBC Hgb Hct RDW Seg Neuts % (Manual) Band Neutrophils % Lymphocytes % (Manual) Monocytes % (Manual) Abs Neuts (Manual) BUN POC Glucose 172 H Magnesium Ur Leukocyte Esterase - Diagnostic Test Radiology reviewed: Image reviewed, Reports reviewed - Chest x-ray does not show acute cardiopulmonary process. Gallbladder ultrasound does not show gallbladder disease. CT scan of the abdomen pelvis with oral and IV contrast shows no acute abnormality to explain the symptoms. Moderate amount of stool in the colon and rectum. Benign hepatic cysts and extensive atherosclerosis. - EKG Interpretation by Me EKG shows normal: Sinus rhythm, Malo, Intervals, QRS Complexes, ST-T Waves Rate: Normal - 69 Rhythm: NSR Voltage: Consistent with LVH Discharge - Discharge Clinical Impression: Epigastric abdominal pain of unknown etiology Leukocytosis Qualifiers: Leukocytosis type: other Qualified Code(s): D72.828 - Other elevated white blood cell count Condition: Stable Disposition: HOME, SELF-CARE Additional Instructions: Abdominal Pain There are many causes of abdominal pain. Pain can mean a serious problem requiring surgery (such as appendicitis). It can also be an innocent problem that goes away on its own (such as a viral infection). Often, time must pass to determine the cause of pain. The physician does not feel that hospitalization is necessary, at present. Things may change within the next 24 hours. Call the doctor or come back for re-examination if any problems occur, such as: (1) Pain that becomes more severe, steady, or becomes concentrated in one specific area. Also, pain that is more severe with movement or coughing. (2) Vomiting that persists or becomes more frequent. (3) Blood in the vomitus, urine, or bowel movements. Blood in the stool may have a tarry or black appearance. (4) Shaking chills or fever greater than 100 degrees F. (5) The abdomen becomes more distended or swollen. (6) Bowel movements cease. (7) Failure to improve as expected. Reflux Disease (GERD) Gastro-Esophageal Reflux Disease (GERD) is caused by stomach acid refluxing back up into the esophagus. The valve at the end of the esophagus may be weak. This is common in persons with a hiatal hernia. GERD symptoms can include indigestion, chest pain, heartburn, or food "sticking." Certain foods, alcohol, and aspirin can make GERD worse. Treatment depends on the severity. Usually, antacids or acid-suppressing medicines are used. When the esophagus is acutely inflamed, the physician will often prescribe membrane-protective drugs such as Carafate. Some patients benefit from medication such as Reglan that tightens the valve at the top of the stomach. Avoid those foods that bring on your symptoms. For many people, these foods are coffee, chocolate, onions, garlic, and carbonated drinks. Don't use alcohol, aspirin, caffeine, or tobacco. Don't eat late at night -- within 4 hours of be dtime. Don't over-eat. If necessary, elevate the head of your bed about 4 inches so that stomach acid will not roll up into your esophagus. Call the doctor if you develop severe chest pain, inability to swallow fluids, fever, or worsening symptoms. The epigastric abdominal pain you are having today which seems to be made worse with taking deep breath, is most likely due to stomach acid reflux also called gastroesophageal reflux. said that the chemo you are given at times can cause similar pains to what you are experiencing. You will be treated for both conditions. You will be prescribed pain medication to take and recommended to take antacids between meals and at bedtime and to start taking Omeprazole as prescribed. Follow-up with Dr. Brown next week. RETURN TO THE EMERGENCY ROOM IF ANY NEW OR WORSENING SYMPTOMS. Prescriptions: Omeprazole 20 mg PO DAILY #20 tablet. Oxycodone HCl/Acetaminophen [Percocet 5-325 mg Tablet] 1 tab PO ASDIR PRN #15 tablet PRN Reason: Referrals: BALBINA GUERRERO PA [Primary Care Provider] - Follow up as needed SONA BROWN MD [ACTIVE STAFF] - Follow up in 3-5 days I personally performed the services described in the documentation, reviewed and edited the documentation which was dictated to the scribe in my presence, and it accurately records my words and actions.
--- NOTE | 2020-01-24 12:08 | RADIOLOGY REPORT (SQ) ---
EXAM DESCRIPTION: U/S ABDOMEN LIMITED W/O DOP IMAGES COMPLETED DATE/TIME: 01/24/2020 11:56 am REASON FOR STUDY: Epigastric, right upper quadrant abdominal pain COMPARISON: None. TECHNIQUE: Dynamic and static grayscale images acquired of the abdomen and recorded on PACS. Additio nal selected color Doppler and spectral images recorded. LIMITATIONS: None. FINDINGS: PANCREAS: Visualized portions of the pancreas are normal in appearance. The tail is obscu red by overlying bowel gas. LIVER: Multiple cysts. Increased echogenicity consistent with fatty infiltration. The liver measure s 17.4 cm in cranial caudal dimensions. LIVER VASCULATURE: Normal directional flow of the main portal vein and hepatic veins. GALLBLADDER: No stones. Normal wall thickness. No pericholecystic fluid. ULTRASOUND-DETECTED MORIN'S SIGN: Negative. INTRAHEPATIC DUCTS AND COMMON DUCT: CBD and intrahepatic ducts normal caliber. No filling defects. AORTA: No aneurysm. RIGHT KIDNEY: The right kidney measures 10.2 cm in length. Echogenicity is normal. Along the super ior margin of the kidney is a small soft tissue lesion most likely the adrenal mass described on CT. This measures 1.4 cm in greatest dimensions. PERITONEAL AND RIGHT PLEURAL SPACE: No ascites or effusions. OTHER: No other significant findings. IMPRESSION: Small right adrenal lesion is demonstrated and grossly stable from prior CT as far size. Multiple small hepatic cysts. TECHNICAL DOCUMENTATION: JOB ID: [id number] [employer]- All Rights Reserved Reading location - IP/workstation name: [email or web address]
[2020-01-24] MEDS ORDERED: PANTOPRAZOLE SODIUM 40 MG VIAL IV ONE (12:57)
[2020-01-24 12:58] LABS: HEMATOCRIT 25.4 % (36.0-47.0); HEMOGLOBIN 8.2 g/dL (12.0-15.5); MEAN CORPUSCULAR HEMOGLOBIN 30.3 pg (27.0-33.4); MEAN CORPUSCULAR HGB CONC 32.4 g/dL (32.0-36.0); MEAN CORPUSCULAR VOLUME 94 fl (80-97); PLATELET COUNT 302 10^3/uL (150-450); RED BLOOD COUNT 2.72 10^6/uL (3.72-5.28); RED CELL DISTRIBUTION WIDTH 16.6 % (11.5-14.0)
[2020-01-24 13:39] LABS: ABSOLUTE LYMPHOCYTES# (MANUAL) 1.8 10^3/uL (0.5-4.7); ABSOLUTE MONOCYTES # (MANUAL) 0.4 10^3/uL (0.1-1.4); BAND NEUTROPHILS % (MANUAL) 1 % (3-5); BASOPHILS % (MANUAL) 0 % (0-2); EOSINOPHILS % (MANUAL) 1 % (0-6); LYMPHOCYTES % (MANUAL) 5 % (13-45); MONOCYTES % (MANUAL) 1 % (3-13); SEGMENTED NEUTROPHILS % (MAN) 92 % (42-78); TOTAL CELLS COUNTED 100
[2020-01-24 13:41] LABS: POIKILOCYTOSIS SLIGHT; TARGET CELLS SLIGHT; TEAR DROP CELLS SLIGHT
[2020-01-24 13:42] LABS: PLATELET COMMENT ADEQUATE; SCHISTOCYTES SLIGHT
[2020-01-24 13:47] LABS: WHITE BLOOD COUNT 36.4 10^3/uL (4.0-10.5)
[2020-01-24 13:59] LABS: ALBUMIN 4.3 g/dL (3.5-5.0); ALKALINE PHOSPHATASE 68 U/L (38-126); ANION GAP 10 (5-19); ASPARTATE AMINO TRANSFERASE 18 U/L (14-36); BILIRUBIN,DIRECT 0.1 mg/dL (0.0-0.4); BILIRUBIN,TOTAL 0.6 mg/dL (0.2-1.3); BLOOD UREA NITROGEN 22 mg/dL (7-20); CALCIUM 9.3 mg/dL (8.4-10.2); CARBON DIOXIDE 24 mmol/L (22-30); CHLORIDE 107 mmol/L (98-107); CREATINE KINASE 34 U/L (30-135); GLUCOSE 110 mg/dL (75-110); POTASSIUM 3.9 mmol/L (3.6-5.0); TOTAL PROTEIN 7.2 g/dL (6.3-8.2)
[2020-01-24] MEDS ORDERED: FENTANYL CITRATE INJ/PF 100 MCG/2 ML AMPUL IV ONE (14:49)
[2020-01-24] MEDS ORDERED: ONDANSETRON HCL INJ/PF 4 MG/2 ML SDV IV ONE (14:50)
[2020-01-24 14:57] LABS: APPEARANCE,URINE SLIGHTLY-CLOUDY; BILIRUBIN,URINE NEGATIVE (NEGATIVE); COLOR,URINE YELLOW; GLUCOSE, URINE NEGATIVE (NEGATIVE); KETONES,URINE NEGATIVE (NEGATIVE); LEUKOCYTE ESTERASE,URINE SMALL (NEGATIVE); NITRITE,URINE NEGATIVE (NEGATIVE); PROTEIN,URINE NEGATIVE (NEGATIVE); URINE SPECIFIC GRAVITY 1.016; UROBILINOGEN,URINE NEGATIVE mg/dL (<2.0)
[2020-01-24] MEDS ORDERED: RINGERS SOLUTION,LACTATED 1,000 ML IV ONE (15:59)
--- NOTE | 2020-01-24 18:55 | RADIOLOGY REPORT (SQ) ---
EXAM DESCRIPTION: CT ABD/PELVIS WITH IV ORAL IMAGES COMPLETED DATE/TIME: 01/24/2020 5:26 pm REASON FOR STUDY: Intractable epigastric pain. History of breast cancer status post right mastectomy . Diffuse and epigastric pain. COMPARISON: Abdominal ultrasound same date. PET CT, 09/01/2019. CT chest, 09/03/2019. TECHNIQUE: CT scan of the abdomen and pelvis performed using helical scanning technique with dynamic intravenous contrast injection. No oral contrast. Images reviewed with lung, soft tissue, and bone windows. Reconstructed coronal and sagittal MPR images reviewed. Delayed images for evaluation of the urinary system also acquired. All images stored on PACS. All CT scanners at this facility use dose modulation, iterative reconstruction, and/or weight based d osing when appropriate to reduce radiation dose to as low as reasonably achievable (ALARA). [facility]: Dose Right [facility]: CareDose [facility]: Dose Right [facility]: Teradose 4D [facility]: [employer] CONTRAST TYPE AND DOSE: contrast/concentration: Isovue 350.00 mmol/ml; Total Contrast Delivered: 78. 0 ml; Total Saline Delivered: 30.1 ml RENAL FUNCTION: GFR > 60. RADIATION DOSE: CT Rad equipment meets quality standard of care and radiation dose reduction techniq ues were employed. CTDIvol: 6.9 - 9.6 mGy. DLP: 802 mGy-cm.. LIMITATIONS: None. FINDINGS: LOWER CHEST: Minimal atelectasis at the left lung base. LIVER: Liver has normal size and contour. Several hepatic cysts are unchanged. No suspicious hepati c mass. Hepatic and portal veins are patent. No biliary ductal dilation. Hepatic and portal veins are patent. SPLEEN: Normal size. No focal lesions. PANCREAS: No masses. No significant calcifications. No adjacent inflammation or peripancreatic fluid collections. Pancreatic duct not dilated. GALLBLADDER: No identified stones by CT criteria. No inflammatory changes to suggest cholecystitis. ADRENAL GLANDS: No significant masses or asymmetry. RIGHT KIDNEY AND URETER: No solid masses. No significant calcifications. No hydronephrosis or hyd roureter. LEFT KIDNEY AND URETER: No solid masses. No significant calcifications. No hydronephrosis or hydr oureter. AORTA AND VESSELS: There is no aortic aneurysm. Calcified and noncalcified atherosclerotic plaque in the abdominal aorta, bilateral common and external iliac arteries. No periaortic fluid. RETROPERITONEUM: No retroperitoneal mass or adenopathy. BOWEL AND PERITONEAL CAVITY: Moderate stool in the colon and rectum. No bowel obstruction. No jose l wall thickening or inflammatory change. No ascites or pneumoperitoneum. APPENDIX: Not visualized. PELVIS: No mass. No free fluid. Normal bladder. ABDOMINAL WALL: No masses. No hernias. BONES: Spondylosis and degenerative disc disease in the thoracic and lumbar spine. No suspicious bon e lesions. OTHER: No other significant finding. IMPRESSION: 1. No acute abnormality in the abdomen or pelvis to explain the patient's symptoms. 2. Moderate amount of stool in the colon and rectum which can be seen with constipation. 3. Benign hepatic cysts are stable. 4. Extensive atherosclerosis. TECHNICAL DOCUMENTATION: JOB ID: [id number] Quality ID # [id number]: Final reports with documentation of one or more dose reduction techniques (e.g., Au tomated exposure control, adjustment of the mA and/or kV according to patient size, use of iterative reconstruction technique) 2010 [employer]- All Rights Reserved Reading location - IP/workstation name: [email or web address]
[2020-01-24] MEDS ORDERED: HYDROCODONE/ACETAMINOPHEN 5-325 MG (6 TAB/ER DISP) PO PRN (19:48)
[2020-01-24 20:59] VITALS: BP 140/57
--- NOTE | 2020-01-25 09:51 | EKG REPORT ---
SEVERITY:- ABNORMAL ECG - SINUS RHYTHM LVH WITH SECONDARY REPOLARIZATION ABNORMALITY : Confirmed by: Kaley Rowe 25-Jan-2020 09:50:14
[2020-01-27 13:11] LABS: PATH REVIEW PATHOLOGIST REVIEWED
== END 2020-01-24 20:59 | disposition home or self-care (01) ==
LOC: ER 09:51
DX: R10.13 Epigastric pain (principal); R10.816 Epigastric abdominal tenderness; R10.811 Right upper quadrant abdominal tenderness; D72.829 Elevated white blood cell count, unspecified; R06.02 Shortness of breath; R07.1 Chest pain on breathing; R42 Dizziness and giddiness; K76.89 Other specified diseases of liver; I10 Essential (primary) hypertension; C50.911 Malignant neoplasm of unspecified site of right female breast; Z90.11 Acquired absence of right breast and nipple; Z98.890 Other specified postprocedural states; Z87.891 Personal history of nicotine dependence; Z91.040 Latex allergy status; Z88.0 Allergy status to penicillin
CPT/HCPCS: 93005; 99285; 96361; 96374; 96375; 36415; 87040; 82962; 82550; 83690; 83735; 85025; 87077; 80053; 81001; 84484; 87186; 87150 ×26; 71046; 76705; 74177; 93010; J3010; J3490; A9270 ×2; C9113; J2405; J7120